=== PATIENT | male | born 1970 | race Caucasian/White ===

== ENCOUNTER 2017-04-05 11:28 | Emergency (ER) | payer OTHER ==
[2017-04-05 11:38] VITALS: TEMP 98.1
[2017-04-05] MEDS ORDERED: SODIUM CHLORIDE 0.9% 500 ML IV STA (12:12)
[2017-04-05] MEDS ORDERED: RX INFO: IV CONTRAST WAS GIVEN 1 EACH MISC MISCELLANE PRN (12:13)
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
[2017-04-05 12:24] VITALS: RESP 16
[2017-04-05 13:07] LABS: Basophils # (A) 0.1 k/uL (0-0.2); Basophils % (A) 1 %; CH 28.7; CHCM 33.2; Eosinophils # (A) 0.5 k/uL (0-0.7); Eosinophils % (A) 6 %; HCT 42.3 % (39.0-53.0); HDW 2.76; HGB 13.7 gm/dL (13.0-17.5); Luc # (Auto) 0.12; Luc % (Auto) 1; Lymphocytes # (A) 1.6 k/uL (1.0-4.8); Lymphocytes % (A) 17 %; MCH 28.2 pg (25.0-35.0); MCHC 32.4 g/dL (31.0-37.0); MCV 87.1 fL (80.0-100.0); Mean Platelet Volume 8.9; Monocytes # (A) 0.5 k/uL (0-1.0); Monocytes % (A) 5 %; Neutrophils # (A) 6.4 k/uL (1.3-7.7); Neutrophils % (A) 70 %; RBC 4.86 m/uL (4.30-5.90); RDW 14.5 % (11.5-15.5); WBC 9.1 k/uL (3.8-10.6); WBC (Perox) 9.01
[2017-04-05 13:24] LABS: ALT 97 U/L (21-72); AST 65 U/L (17-59); Alcohol <10 mg/dL; Alkaline Phosphatase 111 U/L (38-126); Amylase 43 U/L (30-110); Blood Urea Nitrogen 11 mg/dL (9-20); Calcium 9.1 mg/dL (8.4-10.2); Chloride 103 mmol/L (98-107); Glucose 96 mg/dL (74-99); Non-African American GFR(MDRD) >60 (>60 ml/min/1.73 sqM); Potassium 4.5 mmol/L (3.5-5.1); Sodium 138 mmol/L (137-145); Total Bilirubin 0.5 mg/dL (0.2-1.3); Total Protein 6.9 g/dL (6.3-8.2)
[2017-04-05 13:25] LABS: Anion Gap 9 mmol/L; Carbon Dioxide 26 mmol/L (22-30)
[2017-04-05 14:28] LABS: Appearance,Urine Clear (Clear); Bilirubin,Urine Negative (Negative); Glucose,Urine (UA) Negative (Negative); Ketones,Urine Negative (Negative); Leukocyte Esterase,Urine Negative (Negative); Nitrite,Urine Negative (Negative); PH, Urine 6.5 (5.0-8.0); Protein,Urine Negative (Negative); Specific Gravity,Urine 1.023 (1.001-1.035); UA Billing (MACRO vs. MICRO) CHEM; Urobilinogen,Urine <2.0 mg/dL (<2.0)
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
[2017-04-05 14:41] VITALS: BP 121/75; PULSE 74
== END 2017-04-05 14:52 | disposition home or self-care (01) ==
LOC: EC 11:28
DX: S39.012A Strain of muscle, fascia and tendon of lower back, initial encounter (principal); F32.9 Major depressive disorder, single episode, unspecified; I10 Essential (primary) hypertension; G25.81 Restless legs syndrome; E78.5 Hyperlipidemia, unspecified; F17.200 Nicotine dependence, unspecified, uncomplicated; Z95.5 Presence of coronary angioplasty implant and graft; Z79.891 Long term (current) use of opiate analgesic; Z79.899 Other long term (current) drug therapy; V48.5XXA Car driver injured in noncollision transport accident in traffic accident, initial encounter
CPT/HCPCS: 99284; 36415; 80053; 82150; 83690; 85025; 81003; 80306; 80320; 71260; 74177; Q9967

== ENCOUNTER 2017-04-27 10:51 | Observation (INO) | payer OTHER ==
[~2017-04-27 10:51] MED LIST: ALPRAZolam 0.25 MG TAB PO PRN; ALPRAZolam 0.5 MG TAB PO PRN; ASPIRIN 325 MG TAB PO STA; ATORVASTATIN 80 MG TAB PO STA; NITROGLYCERIN SL TABS 0.4 MG TAB SUBLINGUAL PRN; SODIUM CHLORIDE 0.9% 1,000 ML in EMPTY BAG 1 BAG IV ONE
[2017-04-27] MEDS ORDERED: NICOTINE 21MG/24HR PATCH TRANSDERM STA (11:19)
[2017-04-27] MEDS ORDERED: LIDOCAINE 2% INJ 20 MG/ML (20 ML MDV) ONE (12:10)
[2017-04-27] MEDS ORDERED: VERAPAMIL 2.5 MG/ML 2 ML AMP ONE (12:10)
[2017-04-27] MEDS ORDERED: MIDAZOLAM 2 MG/2 ML VIAL ONE (12:10)
[2017-04-27] MEDS: MIDAZOLAM 2 MG/2 ML VIAL IV ONE ×2 (12:30→12:40)
[2017-04-27] MEDS ORDERED: LIDOCAINE 2% INJ 20 MG/ML SQ ONE (12:36)
[2017-04-27] MEDS ORDERED: BIVALIRUDIN BOLUS 250 MG/50 ML IV ONE (12:38)
[2017-04-27] MEDS ORDERED: SODIUM CHLORIDE 0.9% IV ONE (12:39)
[2017-04-27] MEDS ORDERED: BIVALIRUDIN IV ONE (12:39)
[2017-04-27] MEDS: NITROGLYCERIN 1000MCG/10ML SYRINGE INTRACORON ONE ×2 (12:43→12:52)
[2017-04-27] MEDS ORDERED: CLOPIDOGREL 75 MG TAB ONE (12:54)
[2017-04-27] MEDS ORDERED: CLOPIDOGREL 75 MG TAB PO ONE (12:55)
[2017-04-27] MEDS ORDERED: IOHEXOL 350 MG/ML 125ML BOTTLE INJ ONE (12:58)
[2017-04-27] MEDS ORDERED: MAG HYDROX/AL HYDROX/SIMETH 30 ML CUP PO PRN (13:13)
[2017-04-27] MEDS ORDERED: ATROPINE SULFATE 0.1 MG/ML 10ML SYRINGE IV PRN (13:13)
[2017-04-27] MEDS ORDERED: NITROGLYCERIN SL TABS 0.4 MG TAB SUBLINGUAL PRN ×2 (13:13)
[2017-04-27] MEDS ORDERED: RX INFO: IV CONTRAST WAS GIVEN 1 EACH MISC MISCELLANE PRN (13:13)
[2017-04-27] MEDS ORDERED: ZOLPIDEM 5 MG TAB PO PRN (13:13)
[2017-04-27] MEDS ORDERED: SODIUM CHLORIDE 0.9% 1,000 ML IV SCH (13:15)
[2017-04-27] MEDS ORDERED: HYDROmorphone 1 MG/ML 1 ML SYRINGE ONE (13:18)
[2017-04-27] MEDS ORDERED: HYDROmorphone 1 MG/ML 1 ML SYRINGE IVP PRN (13:29)
--- NOTE | 2017-04-27 15:16 | CC ---
CARDIAC CATHETERIZATION REPORT DATE OF SERVICE: 04/27/2017. PERFORMING PHYSICIAN: Johnathan Mccauley MD, Textbook Associate. PROCEDURE PERFORMED: 1. Selective right and left coronary angiogram. 2. Left heart catheterization. 3. Successful stenting of the first diagonal branch of the LAD using 2.5 x 18 mm Xience ELIZABETH with good angiographic results. INDICATION: This is a pleasant 46-year-old gentleman who is known to have coronary artery disease, who presented to the hospital a few weeks ago with unstable angina and underwent stress echocardiogram, came in to be abnormal. He underwent heart catheterization at that point and was found to have severe 2-vessel CAD involving the RCA and first diag. He underwent stenting of the RCA and was brought today to undergo stenting of the diag. APPROACH: Right common femoral artery. COMPLICATION: None. LEVEL OF SEDATION: Moderate with sedation length of 24 minutes. PROCEDURE DESCRIPTION: After obtaining an informed consent, the patient was brought to the [facility]. The right common femoral artery was cannulated using micropuncture technique and a micropuncture wire passed easily. Then I placed a 6-Luxembourger sheath in the right common femoral artery. After that, I did selective right and left coronary angiogram using JR4 and JL4 catheters. After that, I did left heart catheterization using 6-Luxembourger pigtail catheter. The procedure was completed without any complication. SELECTIVE CORONARY ANGIOGRAM: 1. The RCA is a large caliber vessel. It is a dominant vessel. The RCA in the midportion is stented and the stent is patent. 2. The left main is angiographically normal. It bifurcates into the left circumflex and left anterior descending artery. The left circumflex is a large caliber vessel. It is a nondominant vessel. The QUICK so he has 2 obtuse to the tumor his he is a griffin who is up. The left circumflex is a moderate caliber vessel. It is a nondominant vessel. It is angiographically normal. It gives rise into a large OM branch which seems to be angiographically normal. 3. The left anterior descending artery. the proximal LAD appeared to have a lesion in the proximal portion in the range of 40%. It gives rise into a large first diagonal branch which seems to have a lesion, appeared to be in the range of 80%. The mid LAD has mild disease only and the LAD distally appeared to be angiographically normal. 4. HEMODYNAMICS: The left ventricular end-diastolic pressure was 12 mmHg and no gradient was identified across the aortic valve. PCI of the diagonal: Anticoagulation was initiated using Angiomax. Subsequently I took JL4 guide and the left main was engaged. A Whisper wire was used to wire the first diagonal. I did balloon angioplasty using 2.5 x 12 mm balloon and then I deployed 2.5 x 18 mm Xience ELIZABETH where the stent was positioned under fluoroscopy guidance and deployed under 18 atmospheres for 20 seconds. The following angiogram showed good angiographic results. The procedure was completed without any complication. CONCLUSION: 1. Patent stent in the mid right coronary artery. 2. Critical disease involving the first diagonal branch of the left anterior descending artery. 3. Intermediate disease involving the proximal left anterior descending artery. 4. Normal left circumflex coronary artery. 5. Successful stenting of the first diagonal branch using 2.5 x 18 mm Xience ELIZABETH with good angiographic results. POSTPROCEDURE MANAGEMENT: 1. Dual anti-platelet therapy. 2. Risk factor modifications. 3. Follow up with the patient. MMJENNIFER / QUINTENN: [id number] /
[2017-04-27] MEDS: GABAPENTIN 400 MG CAP PO SCH ×2 (16:53→20:10)
[2017-04-27] MEDS: HYDROmorphone 1 MG/ML 1 ML SYRINGE IVP PRN ×2 (17:28→23:31)
[2017-04-27] MEDS: METOPROLOL TARTRATE 12.5 MG TAB PO SCH (20:10)
[2017-04-27] MEDS: cloNIDine HCL 0.1 MG TAB PO SCH (20:10)
[2017-04-27] MEDS: SUCRALFATE 1 GM TAB PO SCH (20:10)
[2017-04-27] MEDS ORDERED: ATORVASTATIN 20 MG TAB PO SCH (21:00)
[2017-04-28] MEDS: HYDROmorphone 1 MG/ML 1 ML SYRINGE IVP PRN (04:03)
[2017-04-28 04:29] VITALS: RESP 18
[2017-04-28 06:42] LABS: Basophils # (A) 0.1 k/uL (0-0.2); Basophils % (A) 1 %; CH 28.7; CHCM 32.5; Eosinophils # (A) 0.7 k/uL (0-0.7); Eosinophils % (A) 8 %; HCT 45.1 % (39.0-53.0); HDW 2.65; HGB 14.3 gm/dL (13.0-17.5); Luc % (Auto) 1; Lymphocytes # (A) 1.4 k/uL (1.0-4.8); Lymphocytes % (A) 17 %; MCH 28.2 pg (25.0-35.0); MCHC 31.8 g/dL (31.0-37.0); MCV 88.6 fL (80.0-100.0); Mean Platelet Volume 9.3; Monocytes # (A) 0.3 k/uL (0-1.0); Monocytes % (A) 4 %; Neutrophils # (A) 5.5 k/uL (1.3-7.7); Neutrophils % (A) 69 %; RBC 5.09 m/uL (4.30-5.90); WBC (Perox) 7.71
[2017-04-28 06:59] LABS: Anion Gap 6 mmol/L; Blood Urea Nitrogen 13 mg/dL (9-20); Calcium 9.1 mg/dL (8.4-10.2); Carbon Dioxide 28 mmol/L (22-30); Chloride 104 mmol/L (98-107); Glucose 95 mg/dL (74-99); Non-African American GFR(MDRD) >60 (>60 ml/min/1.73 sqM); Potassium 4.5 mmol/L (3.5-5.1); Sodium 138 mmol/L (137-145)
[2017-04-28] MEDS: cloNIDine HCL 0.1 MG TAB PO SCH (08:10)
[2017-04-28] MEDS: GABAPENTIN 400 MG CAP PO SCH (08:10)
[2017-04-28] MEDS: METOPROLOL TARTRATE 12.5 MG TAB PO SCH (08:10)
[2017-04-28] MEDS: SUCRALFATE 1 GM TAB PO SCH (08:10)
[2017-04-28 08:20] VITALS: BP 120/72; PULSE 70; TEMP 97.8
[2017-04-28] MEDS ORDERED: NICOTINE 21MG/24HR PATCH TRANSDERM SCH (09:00)
[2017-04-28] MEDS ORDERED: ASPIRIN 325 MG TAB PO SCH (09:00)
[2017-04-28] MEDS ORDERED: CLOPIDOGREL 75 MG TAB PO SCH (09:00)
[2017-04-28] MEDS ORDERED: METHADONE 10 MG TAB PO SCH (09:00)
[2017-04-28 10:04] VITALS: BMI 37.8
--- NOTE | 2017-04-28 14:26 | DS ---
DISCHARGE SUMMARY DATE OF ADMISSION: 04/27/2017. DATE OF DISCHARGE: 04/28/2017 BRIEF HISTORY: This is a pleasant 46-year-old gentleman who was admitted to the hospital yesterday and underwent successful stenting of the first diagonal branch of the LAD using 2.5 x 18 mm drug-eluting stent with good angiographic results and without any complication. The procedure was performed from the right groin which is soft, nontender and without any bruises. The patient is going to be discharged home on dual anti-platelet therapy and statin and I will follow up with the patient as an outpatient in the office. MMODL / IJN: [id number] /
[2017-05-03] MEDS ORDERED: ERGOCALCIFEROL 50,000 UNIT CAP PO SCH (09:00)
== END 2017-04-28 10:50 | disposition home or self-care (01) ==
LOC: CATHCVL 10:51 → 6SEL 12:59 → CATHCVL 23:57 → 6SEL 23:57
PROVIDERS: ADMIT Internal Medicine Interventional Cardiology; ATTEND Internal Medicine Interventional Cardiology
DX: I25.110 Atherosclerotic heart disease of native coronary artery with unstable angina pectoris (principal); I10 Essential (primary) hypertension; E78.5 Hyperlipidemia, unspecified; K21.9 Gastro-esophageal reflux disease without esophagitis; G25.81 Restless legs syndrome; F14.10 Cocaine abuse, uncomplicated; F11.10 Opioid abuse, uncomplicated; F17.200 Nicotine dependence, unspecified, uncomplicated; Z79.891 Long term (current) use of opiate analgesic; Z79.899 Other long term (current) drug therapy; Z79.82 Long term (current) use of aspirin; Z82.49 Family history of ischemic heart disease and other diseases of the circulatory system; Z95.5 Presence of coronary angioplasty implant and graft
CPT/HCPCS: 93458; 80048; 85025; G0378 ×2; C9600; C1760; C1769 ×3; C1887; C1894 ×2; C1874; S4990 ×2; J2001; J2250; S0109; J1170 ×2; J0583; Q9967; 93005

== ENCOUNTER 2017-04-29 19:26 | Observation (INO) | payer OTHER ==
[2017-04-29 20:45] LABS: Basophils # (A) 0.1 k/uL (0-0.2); Basophils % (A) 1 %; Eosinophils # (A) 0.7 k/uL (0-0.7); Eosinophils % (A) 10 %; HGB 13.6 gm/dL (13.0-17.5); Lymphocytes % (A) 26 %; MCH 28.6 pg (25.0-35.0); MCHC 33.3 g/dL (31.0-37.0); MCV 85.9 fL (80.0-100.0); Mean Platelet Volume 9.2; Monocytes # (A) 0.4 k/uL (0-1.0); Monocytes % (A) 6 %; Neutrophils # (A) 4.3 k/uL (1.3-7.7); Neutrophils % (A) 57 %; Platelet Count 203 k/uL (150-450); RBC 4.77 m/uL (4.30-5.90); RDW 14.4 % (11.5-15.5); WBC 7.6 k/uL (3.8-10.6)
--- NOTE | 2017-04-29 20:45 | XR ---
EXAMINATION: XR chest 2V DATE AND TIME: 04/29/2017 8:39 PM ORDERING PROVIDER: Noemy Davis CLINICAL INDICATION: Chest Pain stent placed yesterday. TECHNIQUE: PA and lateral COMPARISON: 03/31/2017 DESCRIPTION: EKG leads. The lungs are clear. The pleural spaces are negative. The cardiac silhouette is not enlarged. The mediastinal and pleural silhouettes are unremarkable. The skeletal structures are intact without focal findings. The soft tissues are unremarkable. IMPRESSION: NO ACUTE PROCESS.
[2017-04-29 20:54] LABS: ALT 50 U/L (21-72); AST 35 U/L (17-59); Albumin 3.9 g/dL (3.5-5.0); Alkaline Phosphatase 98 U/L (38-126); Anion Gap 8 mmol/L; Blood Urea Nitrogen 15 mg/dL (9-20); Calcium 9.7 mg/dL (8.4-10.2); Carbon Dioxide 27 mmol/L (22-30); Chloride 103 mmol/L (98-107); Glucose 96 mg/dL (74-99); Magnesium 2.1 mg/dL (1.6-2.3); Potassium 4.7 mmol/L (3.5-5.1); Sodium 138 mmol/L (137-145); Total Bilirubin 0.3 mg/dL (0.2-1.3); Total Protein 6.7 g/dL (6.3-8.2)
[2017-04-29 21:04] LABS: Creatine Kinase 139 U/L (55-170)
[2017-04-29 21:17] LABS: Creatine Kinase MB 1.2 ng/mL (0.0-2.4); Troponin I <0.012 ng/mL (0.000-0.034)
--- NOTE | 2017-04-29 22:28 | ED ---
Chest Pain HPI <ArpitasherriDoug B - Last Filed: 04/29/17 23:00> - General Source: patient, RN notes reviewed, old records reviewed Mode of arrival: ambulatory Limitations: no limitations <SusanNoemy - Last Filed: 04/29/17 23:05> - General Chief Complaint: Chest Pain Stated Complaint: Chest Pain (Hx Heart) Time Seen by Provider: 04/29/17 20:17 - History of Present Illness Initial Comments: Patient is a 46-year-old male presents emergency room this day with intermittent chest pain. Patient had a stent placed 2 days ago and was discharged yesterday from the hospital. Patient reports that the pain as being coming and going for the past day. He reports he has 0 pain when arriving to emergency department at this time. He reports that the pain radiated into his jaw and to his neck. He denies any difficulty breathing. Denies any cough. He reports the surgery went well. The platelets and his LAD. His medical technologist clinical is Dr. Oquendo. Denies any fever or chills. (Noemy Davis) - Related Data Home Medications Medication Instructions Recorded Confirmed Atorvastatin [Lipitor] 20 mg PO HS 03/31/17 04/29/17 Ergocalciferol [Vitamin D2 50,000 unit PO MO 03/31/17 04/29/17 (DRISDOL)] Gabapentin [Neurontin] 800 mg PO TID 03/31/17 04/29/17 Methadone [Dolophine] 80 mg PO QAM 03/31/17 04/29/17 cloNIDine HCL [Catapres] 0.1 mg PO BID 03/31/17 04/29/17 Clopidogrel [Plavix] 75 mg PO QAM 04/26/17 04/29/17 Sucralfate [Carafate] 1 gm PO BID 04/26/17 04/29/17 Metoprolol Tartrate [Lopressor] 12.5 mg PO BID 04/29/17 04/29/17 Previous Rx's Medication Instructions Recorded Aspirin 325 mg PO DAILY #30 tab 04/04/17 Nicotine 21Mg/24Hr Patch [Habitrol] 1 patch TRANSDERM DAILY #30 patch 04/04/17 Nitroglycerin Sl Tabs [Nitrostat] 0.4 mg SUBLINGUAL Q5M PRN #20 tab 04/04/17 Allergies Allergy/AdvReac Type Severity Reaction Status Date / Time No Known Allergies Allergy Verified 04/29/17 20:22 Review of Systems ROS Other: All systems not noted in ROS Statement are negative. <Doug Yip - Last Filed: 04/29/17 23:00> ROS Other: All systems not noted in ROS Statement are negative. <Noemy Davis - Last Filed: 04/29/17 23:05> ROS Statement: Those systems with pertinent positive or pertinent negative responses have been documented in the HPI. EKG Findings - EKG Comments: EKG Findings:: EKG shows a sinus rhythm with flex ex deviation. Posterior infarct agent determined. Abnormal EKG noted. Sugar at 69 bpm. DC interval is 1 a formal sinus. QRS duration 82 muscles. QTQTC 408/4 [address]706. No evidence of ST elevation or T-wave inversions. Notes of intraventricular. Patient's EKG shows no significant changes from April 28. <Noemy Davis - Last Filed: 04/29/17 23:05> Past Medical History Past Medical History: GERD/Reflux, Hyperlipidemia, Hypertension Additional Past Medical History / Comment(s): RLS History of Any Multi-Drug Resistant Organisms: None Reported Past Surgical History: Heart Catheterization With Stent, Orthopedic Surgery Additional Past Surgical History / Comment(s): R knee arthroscopy, pilonidal cystectomy, circumcism Past Anesthesia/Blood Transfusion Reactions: No Reported Reaction Date of Last Stent Placement:: 04/03/17 Past Psychological History: Depression Smoking Status: Current every day smoker Past Alcohol Use History: None Reported Past Drug Use History: None Reported - Past Family History Father History Unknown: Yes Additional Family Medical History / Comment(s): Pt does not know his father much. Mother Family Medical History: No Reported History <Noemy Davis - Last Filed: 04/29/17 23:05> General Exam General appearance: alert, in no apparent distress Head exam: Present: atraumatic, normocephalic, normal inspection Eye exam: Present: normal appearance, PERRL, EOMI. Absent: scleral icterus, conjunctival injection, periorbital swelling ENT exam: Present: normal exam, mucous membranes moist Neck exam: Present: normal inspection. Absent: tenderness, meningismus, lymphadenopathy Respiratory exam: Present: normal lung sounds bilaterally. Absent: respiratory distress, wheezes, rales, rhonchi, stridor Cardiovascular Exam: Present: regular rate, normal rhythm, normal heart sounds. Absent: systolic murmur, diastolic murmur, rubs, gallop, clicks GI/Abdominal exam: Present: soft, normal bowel sounds. Absent: distended, tenderness, guarding, rebound, rigid Extremities exam: Present: normal inspection, full ROM, normal capillary refill. Absent: tenderness, pedal edema, joint swelling, calf tenderness Back exam: Present: normal inspection Neurological exam: Present: alert, oriented X3, CN II-XII intact Psychiatric exam: Present: normal affect, normal mood Skin exam: Present: warm, dry, intact, normal color. Absent: rash <Doug Yip - Last Filed: 04/29/17 23:00> Limitations: no limitations General appearance: alert, in no apparent distress Head exam: Present: atraumatic, normocephalic, normal inspection Eye exam: Present: normal appearance, PERRL, EOMI. Absent: scleral icterus, conjunctival injection, periorbital swelling ENT exam: Present: normal exam, mucous membranes moist Neck exam: Present: normal inspection. Absent: tenderness, meningismus, lymphadenopathy Respiratory exam: Present: normal lung sounds bilaterally. Absent: respiratory distress, wheezes, rales, rhonchi, stridor Cardiovascular Exam: Present: regular rate, normal rhythm, normal heart sounds. Absent: systolic murmur, diastolic murmur, rubs, gallop, clicks GI/Abdominal exam: Present: soft, normal bowel sounds. Absent: distended, tenderness, guarding, rebound, rigid Extremities exam: Present: normal inspection, full ROM, normal capillary refill. Absent: tenderness, pedal edema, joint swelling, calf tenderness Back exam: Present: normal inspection Neurological exam: Present: alert, oriented X3, CN II-XII intact Psychiatric exam: Present: normal affect, normal mood Skin exam: Present: warm, dry, intact, normal color. Absent: rash <Noemy Davis - Last Filed: 04/29/17 23:05> - General Exam Comments Initial Comments: 46-year-old male. No distress. (Noemy Davis) Course <Doug Yip - Last Filed: 04/29/17 23:00> <Noemy Davis - Last Filed: 04/29/17 23:05> Vital Signs 04/29/17 04/29/17 19:43 20:40 Temperature 98.3 F Pulse Rate 75 83 Respiratory 18 18 Rate Blood Pressure 109/57 111/62 O2 Sat by Pulse 96 96 Oximetry - Reevaluation(s) Reevaluation #1: 04/29/17 22:28 Patient is sleeping at this time. No distress. (Noemy Davis) Reevaluation #2: 04/29/17 23:00 Records from previous hospitalization are reviewed (Doug Yip) Chest Pain MDM <Doug Yip - Last Filed: 04/29/17 23:00> <Noemy Davis - Last Filed: 04/29/17 23:05> - MDM 46 male ER for evaluation of chest pain history of recent stent placement, patient will be admitted for cardiac observation, telemetry, monitor cardiopulmonary status (Doug Yip) Extremities sensory his primary today 2 days after having a stent placed in his LAD. Patient complains of having chest pain intermittently, reading up to his jaw. No shortness of breath. At this time cardiac enzymes are negative. Chest x-ray was normal. He rides any states that his pain is diminished at this time. Given his recent stent placement and risk factors Talisha the patient for further observation. He'll be admitted to the observation unit. ( Noemy Davis) Critical Care Time Critical Care Time: Yes Total Critical Care Time: 31 <Doug Yip - Last Filed: 04/29/17 23:00> Disposition <Doug Yip - Last Filed: 04/29/17 23:00> Time of Disposition: 22:50 <Noemy Davis - Last Filed: 04/29/17 23:05> Clinical Impression: Chest pain Disposition: ADMITTED IP TO THIS HOSP Condition: Stable
[2017-04-29] MEDS ORDERED: NITROGLYCERIN SL TABS 0.4 MG TAB SUBLINGUAL PRN ×2 (22:53→23:02)
[2017-04-30 00:05] VITALS: BMI 34.8
[2017-04-30] MEDS ORDERED: ATORVASTATIN 20 MG TAB PO STA (00:20)
[2017-04-30] MEDS ORDERED: cloNIDine HCL 0.1 MG TAB PO STA (00:20)
[2017-04-30] MEDS ORDERED: GABAPENTIN 400 MG CAP PO STA (00:21)
[2017-04-30] MEDS ORDERED: SUCRALFATE 1 GM TAB PO STA (00:21)
[2017-04-30] MEDS ORDERED: NICOTINE 21MG/24HR PATCH TRANSDERM STA (00:22)
[2017-04-30] MEDS ORDERED: METOPROLOL TARTRATE 12.5 MG TAB PO STA (00:22)
[2017-04-30 05:19] LABS: Cholesterol 142 mg/dL (<200); HDL Cholesterol 31 mg/dL (40-60); Triglycerides 464 mg/dL (<150)
[2017-04-30 08:34] VITALS: BP 118/74; PULSE 65; TEMP 97.8
[2017-04-30] MEDS ORDERED: NICOTINE 21MG/24HR PATCH TRANSDERM SCH (09:00)
[2017-04-30] MEDS ORDERED: GABAPENTIN 400 MG CAP ONE (09:00)
[2017-04-30] MEDS ORDERED: cloNIDine HCL 0.1 MG TAB PO SCH (09:00)
[2017-04-30] MEDS ORDERED: CLOPIDOGREL 75 MG TAB PO SCH (09:00)
[2017-04-30] MEDS ORDERED: ASPIRIN 325 MG TAB PO SCH ×2 (09:00)
[2017-04-30] MEDS ORDERED: METHADONE 10 MG TAB PO SCH (09:00)
[2017-04-30] MEDS ORDERED: METOPROLOL TARTRATE 12.5 MG TAB PO SCH (09:00)
[2017-04-30] MEDS ORDERED: ASPIRIN 325 MG TAB ONE (09:00)
[2017-04-30] MEDS ORDERED: SUCRALFATE 1 GM TAB PO SCH (09:00)
[2017-04-30] MEDS ORDERED: GABAPENTIN 400 MG CAP PO SCH (09:00)
[2017-04-30] MEDS ORDERED: ASPIRIN 81 MG ONE (09:21)
[2017-04-30] MEDS ORDERED: IV FLUID CONTINUATION 950 ML IV ONE (09:33)
[2017-04-30] MEDS ORDERED: ASPIRIN 81 MG PO ONE (09:33)
[2017-04-30] MEDS ORDERED: HEPARIN SODIUM 1,000 UN/ML (10ML VL) ONE ×2 (09:40→10:27)
[2017-04-30] MEDS ORDERED: MIDAZOLAM 2 MG/2 ML VIAL ONE ×2 (09:40→10:03)
[2017-04-30] MEDS ORDERED: VERAPAMIL 2.5 MG/ML 2 ML AMP ONE (09:40)
[2017-04-30] MEDS ORDERED: LIDOCAINE 2% INJ 20 MG/ML (20 ML MDV) ONE (09:43)
[2017-04-30] MEDS ORDERED: MIDAZOLAM 2 MG/2 ML VIAL IVP ONE ×3 (09:48→10:05)
[2017-04-30] MEDS ORDERED: LIDOCAINE 2% INJ 20 MG/ML SQ ONE (09:56)
[2017-04-30] MEDS ORDERED: fentaNYL (PF) 50 MCG/ML 2 ML AMP ONE (09:57)
[2017-04-30] MEDS ORDERED: fentaNYL (PF) 50 MCG/ML 2 ML AMP IVP ONE (09:59)
[2017-04-30] MEDS ORDERED: VERAPAMIL SYRINGE (5 MG/10 ML) INTRAARTER ONE (10:01)
[2017-04-30] MEDS ORDERED: NITROGLYCERIN 1000MCG/10ML SYRINGE INTRACORON ONE (10:05)
[2017-04-30] MEDS ORDERED: HEPARIN SODIUM 1,000 UN/ML (10ML VL) IV ONE (10:28)
[2017-04-30] MEDS ORDERED: niCARdipine Syringe (1,000 mcg/10 mL) INTRACORON ONE (10:47)
[2017-04-30 10:49] VITALS: RESP 16
[2017-04-30] MEDS ORDERED: SODIUM CHLORIDE 0.9% 1,000 ML IV SCH (12:15)
[2017-04-30] MEDS ORDERED: ACETAMINOPHEN TAB 325 MG TAB ONE (14:07)
[2017-04-30] MEDS ORDERED: ATORVASTATIN 20 MG TAB PO SCH (21:00)
--- NOTE | 2017-04-30 22:53 | LTR ---
DATE OF SERVICE: 04/30/[address] Turcios: Mr. Olegario Munoz underwent a heart catheterization and that revealed patent stents in the RCA and the diagonal. The procedure was completed without any complication. I want to thank you for allowing us to participate in his care and please do not hesitate to call if you have any question or concerns. Sincerely, MICAH / IJN: [id number] /
--- NOTE | 2017-04-30 22:53 | CC ---
CARDIAC CATHETERIZATION REPORT DATE OF SERVICE: 04/30/2017 PERFORMING PHYSICIAN: Johnathan Mccauley MD, dispatcher tow truck. PROCEDURE PERFORMED: 1. Selective right and left coronary angiogram. 2. Left heart catheterization. 3. Left ventriculography. 4. Intravascular ultrasound IVUS of the RCA. INDICATION: This is a pleasant 46-year-old gentleman who is known to have CAD and he underwent stenting of the RCA and the diagonal a few weeks ago. He presented to the hospital yesterday complaining of chest discomfort. His symptoms were quite concerning for angina and reminded him with what he had before he had the stent. APPROACH: Right radial artery. COMPLICATION: None. LEVEL OF SEDATION: Moderate with sedation length of 57 minutes. PROCEDURE DESCRIPTION: After obtaining an informed consent, the patient was brought to the cardiac orthodontic lab technician. The right radial artery was cannulated using micropuncture technique, the micropuncture wire passed easily then I placed a 6-Macanese sheath in the right radial artery. After that, I did give the patient anticoagulation with heparin and the patient received a total of 13,000 units of heparin with continuous monitoring the ACT throughout the procedure. Subsequently I did selective right and left coronary angiogram using JR4 and JL3.5 catheters. After that, I did left heart catheterization using 6-Macanese pigtail catheter. Then I did left ventriculography using the 6-Macanese pigtail catheter. After that, I did an intravascular ultrasound, IVUS, of the RCA. Please see a separate paragraph for that. SELECTIVE CORONARY ANGIOGRAM: 1. The RCA is a large caliber vessel and it is a dominant vessel. The proximal RCA appeared to have mild disease only with some contrast staining there. There is no severe or significant coronary artery disease seen. The mid RCA is stented and the stent is patent. The RCA distally had some spasm, which was results by nitroglycerin. 2. The left main is angiographically normal. It bifurcates into the left circumflex, and left anterior descending artery. 3. The left circumflex is a large caliber vessel and it is a nondominant vessel. The proximal left circumflex appears to have mild disease only and gives rise into a first OM branch which has disease appeared to be mild only. The mild disease only in the proximal portion. The mid and distal portion are angiographically normal of the first OM branch. The mid left circumflex is normal and the left circumflex distally is normal as well. 4. The left anterior descending artery; the proximal LAD is angiographically normal. It gives rise into a large first diagonal branch which is stented and the stent is patent. The LAD after the diagonal has mild disease only. The mid LAD appeared to be angiographically normal and the LAD distally is angiographically normal. HEMODYNAMICS: The left ventricular end-diastolic pressure was 20 mmHg and no gradient was identified across the aortic valve. LEFT VENTRICULOGRAPHY: Left ventriculography was performed in the KOEHLER projection and using a power injection. The left ventricular systolic function is mildly impaired with EF between 40% to 45%. IVUS OF THE RCA: Anticoagulation was initiated using heparin and heparin was given by the beginning of the procedure with continuous monitoring ACT throughout the procedure. After that, I did wire the RCA using a whisper wire. I did advanced intravascular ultrasound to the RCA and we did manual pullback. The manual pullback showed patent stent in the mid RCA and the stent is well apposed to the wall. The area proximal to the stent there was an area proximal to the stent I did not see any evidence of significant or severe dissection. I did not see any area of any severe coronary artery disease or concerning. At that point, the procedure was completed without any complication. CONCLUSION: 1. Patent stent in the mid right coronary artery. 2. Patent stent in the first diagonal branch of the left anterior descending artery. 3. No evidence of any residual coronary artery disease seen. 4. Elevated left ventricular end-diastolic pressure. 5. Mildly impaired left ventricular function. 6. A component of coronary vasospasm was seen in the distal right coronary artery. POSTPROCEDURE MANAGEMENT: 1. Maximize medical treatment and continue dual anti-platelet and statin. 2. I will add oral nitrate to the current medical treatment. 3. Follow up with the patient. MMODL / IJN: [id number] /
[2017-05-01] MEDS ORDERED: ISOSORBIDE MONONITRATE ER 30 MG TAB.ER.24H PO SCH (09:00)
--- NOTE | 2017-05-01 11:55 | P.HPIM ---
History of Present Illness H&P Date: 04/30/17 Patient is a 46-year-old male presents emergency room this day with intermittent chest pain. Patient had a stent placed 2 days ago and was discharged yesterday from the hospital. Patient reports that the pain as being coming and going for the past day. He reports he has 0 pain when arriving to emergency department at this time. He reports that the pain radiated into his jaw and to his neck. He denies any difficulty breathing. Denies any cough. He reports the surgery went well. The platelets and his LAD. 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 Denies any fever or chills. Patient underwent a catheterization which showed patent coronary stents and no other coronary occlusion was appreciated. Patient's chest pain is nonpruritic in nature may have acid reflux competent because of which patient will be discharged on Percocet for 14 days Review of Systems REVIEW OF SYSTEMS: CONSTITUTIONAL: No fever, no malaise, no fatigue. HEENT: No recent visual problems or hearing problems. Denied any sore throat. CARDIOVASCULAR: No orthopnea, PND, no palpitations, no syncope. PULMONARY: No shortness of breath, no cough, no hemoptysis. GASTROINTESTINAL: No diarrhea, no nausea, no vomiting, no abdominal pain. Normoactive bowel sounds. NEUROLOGICAL: No headaches, no weakness, no numbness. HEMATOLOGICAL: Denies any bleeding or petechiae. GENITOURINARY: Denies any burning micturition, frequency, or urgency. MUSCULOSKELETAL/RHEUMATOLOGICAL: Denies any joint pain, swelling, or any muscle pain. ENDOCRINE: Denies any polyuria or polydipsia. The rest of the 14-point review of systems is negative. Past Medical History Past Medical History: GERD/Reflux, Hyperlipidemia, Hypertension Additional Past Medical History / Comment(s): RLS History of Any Multi-Drug Resistant Organisms: None Reported Past Surgical History: Heart Catheterization With Stent, Orthopedic Surgery Additional Past Surgical History / Comment(s): R knee arthroscopy, pilonidal cystectomy, circumcism Past Anesthesia/Blood Transfusion Reactions: No Reported Reaction Date of Last Stent Placement:: 04/03/17 Smoking Status: Current some day smoker - Past Family History Father History Unknown: Yes Additional Family Medical History / Comment(s): Pt does not know his father much. Mother Family Medical History: No Reported History Medications and Allergies Home Medications Medication Instructions Recorded Confirmed Type Atorvastatin [Lipitor] 20 mg PO HS 03/31/17 04/30/17 History Ergocalciferol [Vitamin D2 50,000 unit PO MO 03/31/17 04/30/17 History (DRISDOL)] Gabapentin [Neurontin] 800 mg PO QID 03/31/17 04/30/17 History Methadone [Dolophine] 80 mg PO QAM 03/31/17 04/30/17 History cloNIDine HCL [Catapres] 0.1 mg PO BID 03/31/17 04/30/17 History Aspirin 325 mg PO DAILY #30 tab 04/04/17 04/30/17 Rx Nicotine 21Mg/24Hr Patch [Habitrol] 1 patch TRANSDERM DAILY #30 patch 04/04/17 04/30/17 Rx Nitroglycerin Sl Tabs [Nitrostat] 0.4 mg SUBLINGUAL Q5M PRN #20 tab 04/04/17 Rx Clopidogrel [Plavix] 75 mg PO QAM 04/26/17 04/30/17 History Sucralfate [Carafate] 1 gm PO BID 04/26/17 04/30/17 History Metoprolol Tartrate [Lopressor] 12.5 mg PO BID 04/29/17 04/30/17 History Allergies Allergy/AdvReac Type Severity Reaction Status Date / Time No Known Allergies Allergy Verified 04/30/17 00:05 Physical Exam PHYSICAL EXAMINATION: GENERAL: The patient is alert and oriented x3, not in any acute distress. Well developed, well nourished. HEENT: Pupils are round and equally reacting to light. EOMI. No scleral icterus. No conjunctival pallor. Normocephalic, atraumatic. No pharyngeal erythema. No thyromegaly. CARDIOVASCULAR: S1 and S2 present. No murmurs, rubs, or gallops. PULMONARY: Chest is clear to auscultation, no wheezing or crackles. ABDOMEN: Soft, nontender, nondistended, normoactive bowel sounds. No palpable organomegaly. MUSCULOSKELETAL: No joint swelling or deformity. EXTREMITIES: No cyanosis, clubbing, or pedal edema. NEUROLOGICAL: Gross neurological examination did not reveal any focal deficits. SKIN: No rashes. Results CBC & Chem 7: 04/29/17 20:22 04/29/17 20:22 Thrombosis Risk Factor Assmnt - Choose All That Apply Each Factor Represents 1 point: Age 41-60 years Thrombosis Risk Factor Assessment Total Risk Factor Score: 1 Thrombosis Risk Factor Assessment Level: Low Risk Assessment and Plan Plan: #1 chest pain: Rule out acute coronary syndromes and unstable angina patient underwent cardiac catheterization which showed patent coronaries. Patient is being discharged today. 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
--- NOTE | 2017-05-01 11:55 | P.DS ---
Providers Date of admission: 04/29/17 22:59 Attending physician: Krystle Marshall Consults: 04/29/17 22:53 Consult Physician Urgent Consulting Provider: Johnathan Mccauley Consult Reason/Comments: Recent Stent, Unstable Angina Do you want consulting provider notified?: Yes, Notify in am Primary care physician: [facility] Course: Please refer to my HPI Patient Condition at Discharge: Stable Plan - Discharge Summary New Discharge Prescriptions: No Action cloNIDine HCL [Catapres] 0.1 mg PO BID Methadone [Dolophine] 80 mg PO QAM Gabapentin [Neurontin] 800 mg PO QID Ergocalciferol [Vitamin D2 (DRISDOL)] 50,000 unit PO MO Atorvastatin [Lipitor] 20 mg PO HS Aspirin 325 mg PO DAILY #30 tab Nicotine 21Mg/24Hr Patch [Habitrol] 1 patch TRANSDERM DAILY #30 patch Nitroglycerin Sl Tabs [Nitrostat] 0.4 mg SUBLINGUAL Q5M PRN #20 tab PRN Reason: Chest Pain Clopidogrel [Plavix] 75 mg PO QAM Sucralfate [Carafate] 1 gm PO BID Metoprolol Tartrate [Lopressor] 12.5 mg PO BID Discharge Medication List Atorvastatin [Lipitor] 20 mg PO HS 03/31/17 [History] Ergocalciferol [Vitamin D2 (DRISDOL)] 50,000 unit PO MO 03/31/17 [History] Gabapentin [Neurontin] 800 mg PO QID 03/31/17 [History] Methadone [Dolophine] 80 mg PO QAM 03/31/17 [History] cloNIDine HCL [Catapres] 0.1 mg PO BID 03/31/17 [History] Aspirin 325 mg PO DAILY #30 tab 04/04/17 [Rx] Nicotine 21Mg/24Hr Patch [Habitrol] 1 patch TRANSDERM DAILY #30 patch 04/04/17 [ Rx] Nitroglycerin Sl Tabs [Nitrostat] 0.4 mg SUBLINGUAL Q5M PRN #20 tab 04/04/17 [Rx ] Clopidogrel [Plavix] 75 mg PO QAM 04/26/17 [History] Sucralfate [Carafate] 1 gm PO BID 04/26/17 [History] Metoprolol Tartrate [Lopressor] 12.5 mg PO BID 04/29/17 [History] Follow up Appointment(s)/Referral(s): Mary Camarena MD [Primary Care Provider] - 1-2 days
[2017-05-01 18:03] LABS: Creatine Kinase 94 U/L (55-170); Troponin I <0.012 ng/mL (0.000-0.034)
[2017-05-03] MEDS ORDERED: ERGOCALCIFEROL 50,000 UNIT CAP PO SCH (09:00)
== END 2017-04-30 18:15 ==
LOC: EC 19:26 → 3OBS 22:59
PROVIDERS: ADMIT Hospitalist; ATTEND Hospitalist
DX: I25.111 Atherosclerotic heart disease of native coronary artery with angina pectoris with documented spasm (principal); E78.5 Hyperlipidemia, unspecified; K21.9 Gastro-esophageal reflux disease without esophagitis; I10 Essential (primary) hypertension; G25.81 Restless legs syndrome; F32.9 Major depressive disorder, single episode, unspecified; F17.200 Nicotine dependence, unspecified, uncomplicated; E87.1 Hypo-osmolality and hyponatremia; Z95.5 Presence of coronary angioplasty implant and graft; Z79.899 Other long term (current) drug therapy; Z79.02 Long term (current) use of antithrombotics/antiplatelets; Z79.82 Long term (current) use of aspirin; Z79.891 Long term (current) use of opiate analgesic
CPT/HCPCS: 99291; 36415; 93005; 92978; 93458; 85347; 85379; 80061; 80053; 82550 ×2; 82553 ×2; 83735; 84484 ×2; 85025; 85610; 85730; 71020; G0378 ×2; C1769; C1887; C1753; C1894; S4990; J2001; J2250; J3010; J1644 ×2; S0109

== ENCOUNTER 2017-05-29 19:53 | Emergency (ER) | payer OTHER ==
[2017-05-29 20:03] VITALS: RESP 16; TEMP 97.3
[2017-05-29] MEDS ORDERED: SODIUM CHLORIDE 0.9% 1,000 ML IV ONE (20:20)
--- NOTE | 2017-05-29 20:31 | ED ---
Chest Pain HPI - General Source: patient Mode of arrival: wheelchair Limitations: no limitations <Dane Saenz - Last Filed: 05/29/17 21:43> <Doug Lockhart - Last Filed: 05/29/17 22:08> - General Chief Complaint: Chest Pain Stated Complaint: Chest pain Time Seen by Provider: 05/29/17 19:54 - History of Present Illness Initial Comments: This is a 46-year-old male with a history of CAD with a recent stent placement who presents emergency department for an episode of chest pain. 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 He states that it was a pressure sensation in the middle of his chest and went up to his jaw. He states it lasted about 1 minute. He does state that he took one nitro which seemed to help the pain however. He states that the pain seems similar to when he had to have a stent placed before. The patient of note was admitted here recently and had a cath done after his stent placement which showed patent coronaries. He had a similar event at that time. The patient does have nitro at home. He denies any symptoms currently and feels that he feels completely normal. No other complaints. (Dane Saenz) - Related Data Home Medications Medication Instructions Recorded Confirmed Atorvastatin [Lipitor] 20 mg PO HS 03/31/17 04/30/17 Ergocalciferol [Vitamin D2 50,000 unit PO MO 03/31/17 04/30/17 (DRISDOL)] Gabapentin [Neurontin] 800 mg PO QID 03/31/17 04/30/17 Methadone [Dolophine] 80 mg PO QAM 03/31/17 04/30/17 cloNIDine HCL [Catapres] 0.1 mg PO BID 03/31/17 04/30/17 Clopidogrel [Plavix] 75 mg PO QAM 04/26/17 04/30/17 Sucralfate [Carafate] 1 gm PO BID 04/26/17 04/30/17 Metoprolol Tartrate [Lopressor] 12.5 mg PO BID 04/29/17 04/30/17 Previous Rx's Medication Instructions Recorded Aspirin 325 mg PO DAILY #30 tab 04/04/17 Nicotine 21Mg/24Hr Patch [Habitrol] 1 patch TRANSDERM DAILY #30 patch 04/04/17 Nitroglycerin Sl Tabs [Nitrostat] 0.4 mg SUBLINGUAL Q5M PRN #20 tab 04/04/17 Levofloxacin [Levaquin] 500 mg PO DAILY 3 Days #7 tab 05/29/17 Allergies Allergy/AdvReac Type Severity Reaction Status Date / Time No Known Allergies Allergy Verified 05/29/17 20:02 Review of Systems ROS Other: All systems not noted in ROS Statement are negative. <Dane Saenz - Last Filed: 05/29/17 21:43> ROS Other: All systems not noted in ROS Statement are negative. <Doug Lockhart - Last Filed: 05/29/17 22:08> ROS Statement: Those systems with pertinent positive or pertinent negative responses have been documented in the HPI. EKG Findings - EKG Comments: EKG Findings:: EKG showing normal sinus rhythm with a rate 64. There is no abnormal ST segment changes or T-wave inversions. QTC is 460. Other intervals normal. No ectopy. <Dane Saenz - Last Filed: 05/29/17 21:43> Past Medical History Past Medical History: GERD/Reflux, Hyperlipidemia, Hypertension Additional Past Medical History / Comment(s): RLS History of Any Multi-Drug Resistant Organisms: None Reported Past Surgical History: Heart Catheterization With Stent, Orthopedic Surgery Additional Past Surgical History / Comment(s): R knee arthroscopy, pilonidal cystectomy, circumcism Past Anesthesia/Blood Transfusion Reactions: No Reported Reaction Date of Last Stent Placement:: 04/03/17 Past Psychological History: Depression Smoking Status: Former smoker Past Alcohol Use History: None Reported Past Drug Use History: Marijuana - Past Family History Father History Unknown: Yes Additional Family Medical History / Comment(s): Pt does not know his father much. Mother Family Medical History: No Reported History <Dane Saenz - Last Filed: 05/29/17 21:43> General Exam Limitations: no limitations <Dane Saenz - Last Filed: 05/29/17 21:43> <Doug Lockhart - Last Filed: 05/29/17 22:08> - General Exam Comments Initial Comments: Constitutional: Awake alert Appears comfortable Head: Normocephalic atraumatic Eyes: no conjunctival injection No scleral icterus EOMI Neck: No JVD Supple Heart: Regular rate rhythm normal S1-S2 no murmurs Lungs: Clear to auscultation bilaterally No wheezing No rales Abdomen: Soft nondistended nontender Extremities: Non edematous DP pulses intact Radial pulses intact Neuro: A&Ox3 No focal neurologic deficits Psych: Appropriate mood and affect (DanyDane) Course <Dane Saenz - Last Filed: 05/29/17 21:43> <Doug Lockhart - Last Filed: 05/29/17 22:08> Vital Signs 05/29/17 19:54 Temperature 97.3 F L Pulse Rate 62 Respiratory 16 Rate Blood Pressure 121/77 O2 Sat by Pulse 96 Oximetry - Reevaluation(s) Reevaluation #1: 05/29/17 21:[address] Lynn who stated that his patient troponin is negative and still comfortable he can follow-up as an outpatient. (Dane Saenz) - MDM Is a 46-year-old male who presents emergency department for an episode of chest pain. The patient has had no chest pain since being in emergency department. I did speak with Dr. Pereira on the phone about the patient. He was recently cathed and showed completely normal coronaries. At this time he felt comfortable with the patient going home as long as the troponin was negative. Patient not complaining of any chest pain at this time. Of note the chest x- ray was read as possible infiltrate and thus the patient will be started on Levaquin. He has been complaining of having some chills and sweats at home ( Dane Saenz) Disposition <Dane Saenz - Last Filed: 05/29/17 21:43> <Doug Lockhart - Last Filed: 05/29/17 22:08> Clinical Impression: Chest pain, Pneumonia Disposition: HOME SELF-CARE Instructions: Chest Pain (ED), Pneumonia (ED) Prescriptions: Levofloxacin [Levaquin] 500 mg PO DAILY 3 Days #7 tab Referrals: Mary Camarena MD [Primary Care Provider] - 1-2 days Johnathan Mccauley MD [STAFF PHYSICIAN] - 1-2 days
--- NOTE | 2017-05-29 20:43 | XR ---
EXAMINATION TYPE: XR chest 2V DATE OF EXAM: 05/29/2017 COMPARISON: 04/29/2017 HISTORY: 46-year-old male with pain TECHNIQUE: PA and lateral views FINDINGS: Are or normal size. Aorta and pulmonary vasculature within normal limits. Diffuse interstitial promin ence with peribronchial cuffing similar to prior. There is some focal patchy left upper and midlung d ensity. No pleural effusion. IMPRESSION: 1. Interstitial changes, correlate for possible etiologies including bronchitis, chronic asthma, or a typical pneumonias. 2. More focal patchy left upper lobe density could represent atelectasis or early infiltrate.
[2017-05-29 21:09] LABS: Basophils # (A) 0.1 k/uL (0-0.2); Basophils % (A) 1 %; Eosinophils # (A) 0.6 k/uL (0-0.7); Eosinophils % (A) 7 %; HCT 41.4 % (39.0-53.0); HGB 13.4 gm/dL (13.0-17.5); Lymphocytes # (A) 2.1 k/uL (1.0-4.8); Lymphocytes % (A) 26 %; MCH 28.6 pg (25.0-35.0); MCHC 32.4 g/dL (31.0-37.0); MCV 88.2 fL (80.0-100.0); Mean Platelet Volume 9.2; Monocytes # (A) 0.4 k/uL (0-1.0); Monocytes % (A) 5 %; Neutrophils # (A) 4.8 k/uL (1.3-7.7); Neutrophils % (A) 59 %; Platelet Count 244 k/uL (150-450); RBC 4.69 m/uL (4.30-5.90); RDW 14.8 % (11.5-15.5); WBC 8.2 k/uL (3.8-10.6)
[2017-05-29 21:22] LABS: ALT 50 U/L (21-72); AST 38 U/L (17-59); Albumin 4.2 g/dL (3.5-5.0); Alkaline Phosphatase 118 U/L (38-126); Anion Gap 12 mmol/L; Blood Urea Nitrogen 25 mg/dL (9-20); Calcium 9.4 mg/dL (8.4-10.2); Carbon Dioxide 27 mmol/L (22-30); Chloride 104 mmol/L (98-107); Glucose 92 mg/dL (74-99); Magnesium 2.3 mg/dL (1.6-2.3); Potassium 4.7 mmol/L (3.5-5.1); Sodium 143 mmol/L (137-145); Total Bilirubin 0.4 mg/dL (0.2-1.3); Total Protein 6.9 g/dL (6.3-8.2)
[2017-05-29 21:32] LABS: INR 1.1 (<1.2); Partial Thromboplastin Time 24.1 sec (22.0-30.0); Prothrombin Time 10.3 sec (9.0-12.0)
[2017-05-29 21:46] LABS: Troponin I <0.012 ng/mL (0.000-0.034)
[2017-05-29 21:53] LABS: Creatine Kinase MB 3.8 ng/mL (0.0-2.4)
[2017-05-29 22:17] VITALS: BP 93/59; PULSE 63
== END 2017-05-29 22:16 | disposition home or self-care (01) ==
LOC: EC 19:53
DX: J18.9 Pneumonia, unspecified organism (principal); E78.5 Hyperlipidemia, unspecified; I10 Essential (primary) hypertension; K21.9 Gastro-esophageal reflux disease without esophagitis; Z95.5 Presence of coronary angioplasty implant and graft; Z87.891 Personal history of nicotine dependence; Z79.02 Long term (current) use of antithrombotics/antiplatelets; Z79.891 Long term (current) use of opiate analgesic; Z79.899 Other long term (current) drug therapy
CPT/HCPCS: 36415; 71046; 80053; 82553; 83735; 84484; 85025; 85610; 85730; 93005; 96360; 99285

== ENCOUNTER 2017-12-12 00:28 | Emergency (ER) | payer OTHER ==
--- NOTE | 2017-12-12 02:06 | XR ---
EXAMINATION TYPE: XR KUB DATE OF EXAM: 12/12/2017 COMPARISON: NONE HISTORY: Constipation TECHNIQUE: 2 upright views FINDINGS: Bowel gas pattern is normal. There is no sign of intestinal obstruction or pneumoperitoneum . Fecal pattern is normal. There is no evidence of a mass. Lung bases are clear. There are no pathologic calcifications over the kidneys. IMPRESSION: Nonacute abdomen.
[2017-12-12] MEDS ORDERED: KETOROLAC 30 MG/ML 1 ML VIAL IVP STA (02:15)
[2017-12-12] MEDS ORDERED: SODIUM CHLORIDE 0.9% 1,000 ML IV STA (02:15)
[2017-12-12 02:52] LABS: Basophils # (A) 0.1 k/uL (0-0.2); Basophils % (A) 1 %; Eosinophils # (A) 0.2 k/uL (0-0.7); Eosinophils % (A) 2 %; HCT 42.6 % (39.0-53.0); HGB 13.8 gm/dL (13.0-17.5); Lymphocytes # (A) 2.5 k/uL (1.0-4.8); Lymphocytes % (A) 28 %; MCH 27.2 pg (25.0-35.0); MCHC 32.3 g/dL (31.0-37.0); MCV 84.4 fL (80.0-100.0); Mean Platelet Volume 8.2; Monocytes # (A) 0.5 k/uL (0-1.0); Monocytes % (A) 5 %; Neutrophils # (A) 5.5 k/uL (1.3-7.7); Neutrophils % (A) 61 %; Platelet Count 304 k/uL (150-450); RBC 5.05 m/uL (4.30-5.90); RDW 13.9 % (11.5-15.5)
[2017-12-12 03:03] LABS: ALT 29 U/L (21-72); AST 24 U/L (17-59); Albumin 4.2 g/dL (3.5-5.0); Alkaline Phosphatase 84 U/L (38-126); Amylase 58 U/L (30-110); Anion Gap 8 mmol/L; Blood Urea Nitrogen 18 mg/dL (9-20); Calcium 9.7 mg/dL (8.4-10.2); Carbon Dioxide 23 mmol/L (22-30); Chloride 109 mmol/L (98-107); Glucose 130 mg/dL (74-99); Lipase 182 U/L (23-300); Potassium 4.3 mmol/L (3.5-5.1); Sodium 140 mmol/L (137-145); Total Bilirubin 0.4 mg/dL (0.2-1.3); Total Protein 6.6 g/dL (6.3-8.2)
[2017-12-12] MEDS ORDERED: MAGNESIUM CITRATE 296 ML BOTTLE PO ONE (03:17)
--- NOTE | 2017-12-12 03:17 | ED ---
Abdominal Pain HPI - General Chief Complaint: Abdominal Pain Stated Complaint: Abd pain Time Seen by Provider: 12/12/17 01:27 Source: patient, RN notes reviewed Mode of arrival: ambulatory Limitations: no limitations - History of Present Illness Initial Comments: 47-year-old male presents emergency Department chief complaint of abdominal pain constipation. Patient states he has left lower quadrant abdominal pain. Patient denies any nausea vomiting fever, chills. Patient had no prior abdominal surgeries. Patient states that he has not tried taking any for constipation. Patient does admit that he recently was discontinued off of methadone. - Related Data Home Medications Medication Instructions Recorded Confirmed Atorvastatin [Lipitor] 20 mg PO HS 03/31/17 04/30/17 Ergocalciferol [Vitamin D2 50,000 unit PO MO 03/31/17 04/30/17 (DRISDOL)] Gabapentin [Neurontin] 800 mg PO QID 03/31/17 04/30/17 Methadone [Dolophine] 80 mg PO QAM 03/31/17 04/30/17 cloNIDine HCL [Catapres] 0.1 mg PO BID 03/31/17 04/30/17 Clopidogrel [Plavix] 75 mg PO QAM 04/26/17 04/30/17 Sucralfate [Carafate] 1 gm PO BID 04/26/17 04/30/17 Metoprolol Tartrate [Lopressor] 12.5 mg PO BID 04/29/17 04/30/17 Previous Rx's Medication Instructions Recorded Aspirin 325 mg PO DAILY #30 tab 04/04/17 Nicotine 21Mg/24Hr Patch [Habitrol] 1 patch TRANSDERM DAILY #30 patch 04/04/17 Nitroglycerin Sl Tabs [Nitrostat] 0.4 mg SUBLINGUAL Q5M PRN #20 tab 04/04/17 Levofloxacin [Levaquin] 500 mg PO DAILY 3 Days #7 tab 05/29/17 Allergies Allergy/AdvReac Type Severity Reaction Status Date / Time No Known Allergies Allergy Verified 12/12/17 00:39 Review of Systems ROS Statement: Those systems with pertinent positive or pertinent negative responses have been documented in the HPI. ROS Other: All systems not noted in ROS Statement are negative. Past Medical History Past Medical History: GERD/Reflux, Hyperlipidemia, Hypertension Additional Past Medical History / Comment(s): RLS History of Any Multi-Drug Resistant Organisms: None Reported Past Surgical History: Heart Catheterization With Stent, Orthopedic Surgery Additional Past Surgical History / Comment(s): R knee arthroscopy, pilonidal cystectomy, circumcism Past Anesthesia/Blood Transfusion Reactions: No Reported Reaction Date of Last Stent Placement:: 04/03/17 Past Psychological History: Depression Smoking Status: Current every day smoker Past Alcohol Use History: None Reported Past Drug Use History: Heroin, IV Drug Use, Marijuana, Methamphetamine, Prescription Drug Abuse - Past Family History Father History Unknown: Yes Additional Family Medical History / Comment(s): Pt does not know his father much. Mother Family Medical History: No Reported History General Exam Limitations: no limitations General appearance: alert, in no apparent distress Head exam: Present: atraumatic, normocephalic, normal inspection Respiratory exam: Present: normal lung sounds bilaterally. Absent: respiratory distress, wheezes, rales, rhonchi, stridor Cardiovascular Exam: Present: regular rate, normal rhythm, normal heart sounds. Absent: systolic murmur, diastolic murmur, rubs, gallop, clicks GI/Abdominal exam: Present: soft, tenderness (Mild left lower quadrant tenderness), normal bowel sounds. Absent: distended, guarding, rebound, rigid Back exam: Absent: CVA tenderness (R), CVA tenderness (L) Course Vital Signs 12/12/17 00:36 Temperature 98.2 F Pulse Rate 95 Respiratory 20 Rate Blood Pressure 123/88 O2 Sat by Pulse 98 Oximetry Medical Decision Making - Medical Decision Making 47-year-old male presented for abdominal pain. Patient also complained constipation. He does have mild constipation x-ray patient is sleeping in the room at this time. Patient was updated on lab results which are unremarkable. Patient will be discharged with magnesium citrate return parameters were discussed. - Lab Data Result diagrams: 12/12/17 02:36 12/12/17 02:36 Lab Results 12/12/17 12/12/17 Range/Units 02:36 02:36 WBC 9.0 (3.8-10.6) k/uL RBC 5.05 (4.30-5.90) m/uL Hgb 13.8 (13.0-17.5) gm/dL Hct 42.6 (39.0-53.0) % MCV 84.4 (80.0-100.0) fL MCH 27.2 (25.0-35.0) pg MCHC 32.3 (31.0-37.0) g/dL RDW 13.9 (11.5-15.5) % Plt Count 304 (150-450) k/uL Neutrophils % 61 % Lymphocytes % 28 % Monocytes % 5 % Eosinophils % 2 % Basophils % 1 % Neutrophils # 5.5 (1.3-7.7) k/uL Lymphocytes # 2.5 (1.0-4.8) k/uL Monocytes # 0.5 (0-1.0) k/uL Eosinophils # 0.2 (0-0.7) k/uL Basophils # 0.1 (0-0.2) k/uL Sodium 140 (137-145) mmol/L Potassium 4.3 (3.5-5.1) mmol/L Chloride 109 H (98-107) mmol/L Carbon Dioxide 23 (22-30) mmol/L Anion Gap 8 mmol/L BUN 18 (9-20) mg/dL Creatinine 1.11 (0.66-1.25) mg/dL Est GFR (CKD-EPI)AfAm >90 (>60 ml/min/1.73 sqM) Est GFR (CKD-EPI)NonAf 79 (>60 ml/min/1.73 sqM) Glucose 130 H (74-99) mg/dL Calcium 9.7 (8.4-10.2) mg/dL Total Bilirubin 0.4 (0.2-1.3) mg/dL AST 24 (17-59) U/L ALT 29 (21-72) U/L Alkaline Phosphatase 84 (38-126) U/L Total Protein 6.6 (6.3-8.2) g/dL Albumin 4.2 (3.5-5.0) g/dL Amylase 58 (30-110) U/L Lipase 182 (23-300) U/L Disposition Clinical Impression: Constipation, Abdominal pain Disposition: HOME SELF-CARE Condition: Stable Instructions: Abdominal Pain (ED) Additional Instructions: Please return to the Emergency Department if symptoms worsen or any other concerns. Is patient prescribed a controlled substance at d/c from ED?: No Referrals: Mary Camarena MD [Primary Care Provider] - 1-2 days Time of Disposition: 03:17
[2017-12-12 03:37] VITALS: BP 144/89; PULSE 76; RESP 17; TEMP 98.3
== END 2017-12-12 03:37 | disposition home or self-care (01) ==
LOC: EC 00:28
DX: K59.00 Constipation, unspecified (principal); E78.5 Hyperlipidemia, unspecified; I10 Essential (primary) hypertension; G25.81 Restless legs syndrome; F17.200 Nicotine dependence, unspecified, uncomplicated; Z95.5 Presence of coronary angioplasty implant and graft; Z79.891 Long term (current) use of opiate analgesic; Z79.02 Long term (current) use of antithrombotics/antiplatelets; Z79.899 Other long term (current) drug therapy
CPT/HCPCS: 36415; 80053; 82150; 83690; 85025; 74018; 99284; 96374; 96361; J1885

== ENCOUNTER 2020-11-03 07:06 | Observation (INO) | payer OTHER ==
[2020-11-03] MEDS ORDERED: NITROGLYCERIN OINT 1 INCH/GM PACKET TOPICAL STA (07:24)
[2020-11-03] MEDS ORDERED: ASPIRIN 81 MG PO STA (07:24)
--- NOTE | 2020-11-03 07:27 | ED ---
General Adult HPI - General Chief complaint: Chest Pain Stated complaint: Syncope Time Seen by Provider: 11/03/20 07:16 Source: patient, police, EMS, RN notes reviewed Mode of arrival: EMS Limitations: no limitations - History of Present Illness Initial comments: Patient is a 50-year-old male presenting to the emergency Department with chest discomfort and syncopal episode. Episode occurred this morning. Patient woke up for breakfast. Patient has had some waxing and waning but overall mild chest pressure. Discomfort is minimal at this time. Patient did have an episode where he lost consciousness. Patient did feel lightheaded at the time. Patient states he bumped the right side of his face, in the cheek area. Patient otherwise did not hit his head. No headache. No weakness or confusion. No change in mental status. No history of similar symptoms previously. No associated dyspnea, nausea, or diaphoresis. - Related Data Home Medications Medication Instructions Recorded Confirmed Atorvastatin [Lipitor] 20 mg PO HS 03/31/17 04/30/17 Ergocalciferol [Vitamin D2 50,000 unit PO MO 03/31/17 04/30/17 (DRISDOL)] Gabapentin [Neurontin] 800 mg PO QID 03/31/17 04/30/17 Methadone [Dolophine] 80 mg PO QAM 03/31/17 04/30/17 cloNIDine HCL [Catapres] 0.1 mg PO BID 03/31/17 04/30/17 Clopidogrel [Plavix] 75 mg PO QAM 04/26/17 04/30/17 Sucralfate [Carafate] 1 gm PO BID 04/26/17 04/30/17 Metoprolol Tartrate [Lopressor] 12.5 mg PO BID 04/29/17 04/30/17 Previous Rx's Medication Instructions Recorded Aspirin 325 mg PO DAILY #30 tab 04/04/17 Nicotine 21Mg/24Hr Patch [Habitrol] 1 patch TRANSDERM DAILY #30 patch 04/04/17 Nitroglycerin Sl Tabs [Nitrostat] 0.4 mg SUBLINGUAL Q5M PRN #20 tab 04/04/17 Levofloxacin [Levaquin] 500 mg PO DAILY 3 Days #7 tab 05/29/17 Allergies Allergy/AdvReac Type Severity Reaction Status Date / Time No Known Allergies Allergy Verified 12/12/17 00:39 Review of Systems ROS Statement: Those systems with pertinent positive or pertinent negative responses have been documented in the HPI. ROS Other: All systems not noted in ROS Statement are negative. Constitutional: Denies: fever Eyes: Denies: eye pain ENT: Denies: ear pain Respiratory: Denies: cough Cardiovascular: Reports: as per HPI, chest pain Endocrine: Denies: fatigue Gastrointestinal: Denies: abdominal pain Genitourinary: Denies: dysuria Musculoskeletal: Denies: back pain Skin: Denies: rash Neurological: Denies: headache, weakness, numbness, paresthesias, confusion, abnormal gait Past Medical History Past Medical History: Coronary Artery Disease (CAD), GERD/Reflux, Hyperlipidemia, Hypertension Additional Past Medical History / Comment(s): RLS History of Any Multi-Drug Resistant Organisms: None Reported Past Surgical History: Heart Catheterization With Stent, Orthopedic Surgery Additional Past Surgical History / Comment(s): R knee arthroscopy, pilonidal cystectomy, circumcism Past Anesthesia/Blood Transfusion Reactions: No Reported Reaction Date of Last Stent Placement:: 04/03/17 Past Psychological History: Depression Past Alcohol Use History: None Reported Past Drug Use History: Heroin, IV Drug Use, Marijuana, Methamphetamine, Prescription Drug Abuse - Past Family History Father History Unknown: Yes Additional Family Medical History / Comment(s): Pt does not know his father much. Mother Family Medical History: No Reported History General Exam Limitations: no limitations General appearance: alert, in no apparent distress Head exam: Present: atraumatic, normocephalic, other (No tenderness to the right cheek region) Eye exam: Present: normal appearance, PERRL, EOMI ENT exam: Present: normal oropharynx Neck exam: Present: normal inspection. Absent: tenderness Respiratory exam: Present: normal lung sounds bilaterally. Absent: chest wall tenderness Cardiovascular Exam: Present: regular rate, normal rhythm Expanded Peripheral pulses: 2+: Radial (R), Radial (L), Posterior Tibialis (R), Posterior Tibialis (L) GI/Abdominal exam: Present: soft. Absent: tenderness, pulsatile mass Extremities exam: Present: normal inspection. Absent: pedal edema, calf tenderness Neurological exam: Present: alert, oriented X3, CN II-XII intact. Absent: motor sensory deficit Expanded Speech: Present: fluid speech Motor strength exam: RUE: 5, LUE: 5, RLE: 5, LLE: 5 Eye Response: (4) open spontaneously Motor Response: (6) obeys commands Verbal Response: (5) oriented Psychiatric exam: Present: normal affect, normal mood Skin exam: Present: normal color Course Vital Signs 11/03/20 07:13 Temperature 98.2 F Pulse Rate 59 L Respiratory 16 Rate Blood Pressure 97/60 O2 Sat by Pulse 99 Oximetry EKG Findings - EKG Comments: EKG Findings:: Since bradycardia with rate of 59. [place] 192. QRS 70. QT 396. QTc 392. Left axis. Inferior Q waves and T wave inversion. Medical Decision Making - Medical Decision Making Case was discussed with Dr. Mullen, who will admit covering for hospital call. Patient and officer updated. - Lab Data Result diagrams: 11/03/20 07:10 11/03/20 07:10 Lab Results 11/03/20 11/03/20 11/03/20 Range/Units 07:10 07:10 07:10 WBC 6.9 (3.8-10.6) k/uL RBC 5.08 (4.30-5.90) m/uL Hgb 15.1 (13.0-17.5) gm/dL Hct 44.3 (39.0-53.0) % MCV 87.2 (80.0-100.0) fL MCH 29.6 (25.0-35.0) pg MCHC 34.0 (31.0-37.0) g/dL RDW 13.4 (11.5-15.5) % Plt Count 223 (150-450) k/uL MPV 9.4 Neutrophils % 61 % Lymphocytes % 26 % Monocytes % 5 % Eosinophils % 6 % Basophils % 1 % Neutrophils # 4.2 (1.3-7.7) k/uL Lymphocytes # 1.8 (1.0-4.8) k/uL Monocytes # 0.4 (0-1.0) k/uL Eosinophils # 0.4 (0-0.7) k/uL Basophils # 0.1 (0-0.2) k/uL PT 10.9 (9.0-12.0) sec INR 1.0 (<1.2) APTT 22.4 (22.0-30.0) sec D-Dimer <0.17 (<0.60) mg/L FEU Sodium 138 (137-145) mmol/L Potassium 4.4 (3.5-5.1) mmol/L Chloride 105 (98-107) mmol/L Carbon Dioxide 28 (22-30) mmol/L Anion Gap 5 mmol/L BUN 11 (9-20) mg/dL Creatinine 1.16 (0.66-1.25) mg/dL Est GFR (CKD-EPI)AfAm 85 (>60 ml/min/1.73 sqM) Est GFR (CKD-EPI)NonAf 74 (>60 ml/min/1.73 sqM) Glucose 102 H (74-99) mg/dL Calcium 9.0 (8.4-10.2) mg/dL Magnesium 2.0 (1.6-2.3) mg/dL Total Bilirubin 0.5 (0.2-1.3) mg/dL AST 87 H (17-59) U/L ALT 86 H (4-49) U/L Alkaline Phosphatase 78 (38-126) U/L Troponin I (0.000-0.034) ng/mL Total Protein 6.5 (6.3-8.2) g/dL Albumin 3.9 (3.5-5.0) g/dL 11/03/20 Range/Units 07:10 WBC (3.8-10.6) k/uL RBC (4.30-5.90) m/uL Hgb (13.0-17.5) gm/dL Hct (39.0-53.0) % MCV (80.0-100.0) fL MCH (25.0-35.0) pg MCHC (31.0-37.0) g/dL RDW (11.5-15.5) % Plt Count (150-450) k/uL MPV Neutrophils % % Lymphocytes % % Monocytes % % Eosinophils % % Basophils % % Neutrophils # (1.3-7.7) k/uL Lymphocytes # (1.0-4.8) k/uL Monocytes # (0-1.0) k/uL Eosinophils # (0-0.7) k/uL Basophils # (0-0.2) k/uL PT (9.0-12.0) sec INR (<1.2) APTT (22.0-30.0) sec D-Dimer (<0.60) mg/L FEU Sodium (137-145) mmol/L Potassium (3.5-5.1) mmol/L Chloride (98-107) mmol/L Carbon Dioxide (22-30) mmol/L Anion Gap mmol/L BUN (9-20) mg/dL Creatinine (0.66-1.25) mg/dL Est GFR (CKD-EPI)AfAm (>60 ml/min/1.73 sqM) Est GFR (CKD-EPI)NonAf (>60 ml/min/1.73 sqM) Glucose (74-99) mg/dL Calcium (8.4-10.2) mg/dL Magnesium (1.6-2.3) mg/dL Total Bilirubin (0.2-1.3) mg/dL AST (17-59) U/L ALT (4-49) U/L Alkaline Phosphatase (38-126) U/L Troponin I <0.012 (0.000-0.034) ng/mL Total Protein (6.3-8.2) g/dL Albumin (3.5-5.0) g/dL - Radiology Data Radiology results: image reviewed (Chest x-ray reveals no acute process) Disposition Clinical Impression: Chest pain, Syncope Disposition: ADMITTED IP TO THIS HOSP Is patient prescribed a controlled substance at d/c from ED?: No Referrals: None,Stated [Primary Care Provider] - 1-2 days Decision Time: 08:27
[2020-11-03 07:44] LABS: Basophils # (A) 0.1 k/uL (0-0.2); Basophils % (A) 1 %; Eosinophils # (A) 0.4 k/uL (0-0.7); Eosinophils % (A) 6 %; HCT 44.3 % (39.0-53.0); HGB 15.1 gm/dL (13.0-17.5); Lymphocytes # (A) 1.8 k/uL (1.0-4.8); Lymphocytes % (A) 26 %; MCH 29.6 pg (25.0-35.0); MCV 87.2 fL (80.0-100.0); Mean Platelet Volume 9.4; Monocytes # (A) 0.4 k/uL (0-1.0); Monocytes % (A) 5 %; Neutrophils # (A) 4.2 k/uL (1.3-7.7); Neutrophils % (A) 61 %; Platelet Count 223 k/uL (150-450); RBC 5.08 m/uL (4.30-5.90); RDW 13.4 % (11.5-15.5); WBC 6.9 k/uL (3.8-10.6)
[2020-11-03 07:54] LABS: Albumin 3.9 g/dL (3.5-5.0); Potassium 4.4 mmol/L (3.5-5.1); Total Bilirubin 0.5 mg/dL (0.2-1.3); Total Protein 6.5 g/dL (6.3-8.2)
[2020-11-03 07:59] LABS: D-Dimer <0.17 mg/L FEU (<0.60); Partial Thromboplastin Time 22.4 sec (22.0-30.0); Prothrombin Time 10.9 sec (9.0-12.0)
--- NOTE | 2020-11-03 08:22 | XR ---
EXAMINATION TYPE: XR chest 1V portable DATE OF EXAM: 11/03/2020 HISTORY: Shortness of breath. COMPARISON: 05/29/2017 TECHNIQUE: Single view of the chest is submitted. FINDINGS: Demonstrated are scattered senescent parenchymal change. There is no evidence for focal infiltrate. The heart is stable. Hilar and mediastinal structures are within normal limits. Degenerative changes are seen of the dorsal spine. IMPRESSION: 1. Chronic changes without evidence for acute pulmonary disease.
[2020-11-03] MEDS ORDERED: NITROGLYCERIN SL TABS 0.4 MG TAB SUBLINGUAL PRN (08:27)
[2020-11-03] MEDS ORDERED: oxyCODONE-APAP 5-325MG 1 EACH TAB PO PRN (08:28)
[2020-11-03] MEDS ORDERED: NALOXONE 0.4 MG/ML 1 ML VIAL IV PRN (08:28)
[2020-11-03] MEDS ORDERED: MORPHINE SULFATE 4 MG/ML SYRINGE IV PRN (08:28)
[2020-11-03] MEDS ORDERED: ACETAMINOPHEN TAB 325 MG TAB PO PRN (08:28)
[2020-11-03] MEDS: ENOXAPARIN 40 MG/0.4 ML SYRINGE SQ SCH (08:44)
--- NOTE | 2020-11-03 11:26 | P.HPIM ---
History of Present Illness H&P Date: 11/03/20 Chief Complaint: chest pressure, syncope 50 year old man with history of CAD s/p PCI x 2, narcotic dependence, HLD, HTN presented for chest pressure and syncopal episode. He said that he has been experiencing palpitations intermittently throughout the week leading up to arr ival. This morning, he had an episode in which he lost consciousness briefly shortly after breakfast. He denied hitting his head, biting his tongue, losing bowel or bladder during the episode. He denies palpitations just prior to syncope. He denies confusion after coming to after the episode. He reports some feeling of chest pressure, but not pain. He denies fevers, chills, n/v/c/d, abd pain, cough, dyspnea, dysuria, dyschezia, numbness/weakness. In the ER, patient was afebrile, 105/58, HR 60, 100% on room air. CBC and chemistries unremarkable. LFTs show mild non-specific elevation of AST/ALT. Troponins were negative x 2. EKG shows sinus bradycardia without ischemic changes. CXR is clear with no vascular congestion or lung pathology. Review of Systems All Systems reviewed and pertinent positives and negatives noted in HPI, all other symptoms are negative Past Medical History Past Medical History: Coronary Artery Disease (CAD), GERD/Reflux, Hyperlipidemia, Hypertension Additional Past Medical History / Comment(s): RLS History of Any Multi-Drug Resistant Organisms: None Reported Past Surgical History: Heart Catheterization With Stent, Orthopedic Surgery Additional Past Surgical History / Comment(s): R knee arthroscopy, pilonidal cystectomy, circumcism Past Anesthesia/Blood Transfusion Reactions: No Reported Reaction Date of Last Stent Placement:: 04/03/17 Past Psychological History: Depression Past Alcohol Use History: None Reported Past Drug Use History: Heroin, IV Drug Use, Marijuana, Methamphetamine, Prescription Drug Abuse - Past Family History Father History Unknown: Yes Additional Family Medical History / Comment(s): Pt does not know his father much. Mother Family Medical History: No Reported History Medications and Allergies Home Medications Medication Instructions Recorded Confirmed Type cloNIDine HCL [Catapres] 0.1 mg PO BID 03/31/17 11/03/20 History Aspirin 325 mg PO DAILY #30 tab 04/04/17 11/03/20 Rx Clopidogrel [Plavix] 75 mg PO DAILY 04/26/17 11/03/20 History Metoprolol Tartrate [Lopressor] 12.5 mg PO BID 04/29/17 11/03/20 History Loratadine [Claritin] 10 mg PO DAILY 11/03/20 11/03/20 History Omeprazole 20 mg PO BID 11/03/20 11/03/20 History Pramipexole [Mirapex] 0.5 mg PO HS 11/03/20 11/03/20 History Rosuvastatin [Crestor] 20 mg PO HS 11/03/20 11/03/20 History Allergies Allergy/AdvReac Type Severity Reaction Status Date / Time No Known Allergies Allergy Verified 11/03/20 08:54 Physical Exam Osteopathic Statement: *. No significant issues noted on an osteopathic structural exam other than those noted in the History and Physical/Consult. Vitals: Vital Signs Temp Pulse Resp BP Pulse Ox 11/03/20 10:30 98 F 60 16 105/58 100 11/03/20 08:50 60 16 90/53 98 11/03/20 07:13 98.2 F 59 L 16 97/60 99 Intake and Output 11/02/20 11/03/20 11/03/20 22:59 06:59 14:59 Other: Weight 104.326 kg Gen: awake, alert HEENT: normocephalic, atraumatic, good hearing acuity, moist mucous membranes Resp: good air exchange, breathing comfortably with no accessory muscle use, clear to auscultation bilaterally without wheezes or crackles CVS: good distal perfusion x 4, regular rate and rhythm without murmurs GI: soft, NTTP, ND appropriate bowel sounds : no SPT, no CVAT, edwards catheter not present MSK: no pitting edema, no clubbing Neuro: non-focal, moving all extremities Psych: cooperative, euthymic mood Results CBC & Chem 7: 11/03/20 07:10 11/03/20 07:10 Labs: Abnormal Lab Results - Last 24 Hours (Table) 11/03/20 Range/Units 07:10 Glucose 102 H (74-99) mg/dL AST 87 H (17-59) U/L ALT 86 H (4-49) U/L Assessment and Plan Assessment: Syncope Chest pressure History of CAD -Admit to telemetry, observation -Cardiology consult -Trend troponins -EKG/nitro when necessary -Aspirin, Plavix -Statin -Continue home metoprolol -Echocardiogram, pending Hypertension Hyperlipidemia Narcotic dependence -Home medications reviewed and reconciled Patient is a full code
[2020-11-03] MEDS ORDERED: NITROGLYCERIN OINT 1 INCH/GM PACKET TOPICAL SCH (12:00)
--- NOTE | 2020-11-03 12:14 | P.CRDCN ---
History of Present Illness Consult date: 11/03/20 History of present illness: HISTORY OF PRESENT ILLNESS: This is a 50-year-old male with a past medical history significant for coronary artery disease with previous stenting, hypertension, and hyperlipidemia. Patient follows in the office with Dr. Badillo. We have been asked to see the patient in consultation for chest pain and syncope. Patient examined at the bedside in the emergency room. Patient is currently incarcerated and officer is at the bedside. Patient states this morning he was in his normal state of health when he was walking after breakfast and had an apparent syncopal episode. It is unclear if the patient lost consciousness. He reports feeling mildly dizzy before this happened. He denies chest pain or pressure. He denies shortness of breath. He denies losing control of bowel or bladder. Patient denies biting his tongue. At the time of examination, the patient denies any complaints. EKG reveals sinus mechanism with T-wave inversions in inferior leads Chest xray chronic changes without evidence for acute pulmonary disease Laboratory data: WBC 6.9. Hemoglobin 15.1. Platelet count 223. D-dimer 0.17. Sodium 138. Potassium 4.4. BUN 11. Creatinine 1.16. Magnesium 2.0. Troponin negative 2. Current home cardiac medications include Crestor 20 gm daily, Catapres 0.1 mg twice a day, metoprolol tartrate 12.5 mg twice a day, clopidogrel 75 mg daily, aspirin 325 mg daily Most recent echocardiogram obtained in 2017 revealed ejection fraction 55-60%, mild mitral regurgitation and trace tricuspid regurgitation Cardiac catheterization history: April [address] Badillo revealing patent stent in the mid right coronary artery, patent stent in the first diagonal branch of the left anterior descending artery, mildly impaired left ventricular function, and a component of coronary vasospasm was seen in the distal right coronary artery. REVIEW OF SYSTEMS: At the time of my exam: CONSTITUTIONAL: Denies fever or chills. HEENT: Denies blurred vision, vision changes, or eye pain. Denies hemoptysis CARDIOVASCULAR: Denies chest pain. Denies orthopnea. Denies PND. Denies palpitations RESPIRATORY: Denies shortness of breath. GASTROINTESTINAL: Denies abdominal pain. Denies nausea or vomiting. HEMATOLOGIC: Denies bleeding disorders. GENITOURINARY: Denies any blood in urine. SKIN: Denies pruitis. Denies rash. PHYSICAL EXAM: VITAL SIGNS: Reviewed. GENERAL: Well-developed in no acute distress. HEENT: Head is normocephalic. Pupils are equal, round. Sclerae anicteric. Mucous membranes of the mouth are moist. Neck supple. No JVD or thyromegaly LUNGS: Respirations even and unlabored. Lungs essentially clear to auscultation bilaterally. HEART: Regular rate and rhythm. S1 and S2 heard. ABDOMEN: Soft. Nondistended. Nontender. EXTREMITIES: Normal range of motion. No clubbing or cyanosis. Peripheral pulses intact. No lower extremity edema NEUROLOGIC: Awake and alert. Oriented x 3. ASSESSMENT: Chest pain, ruled out, patient denies Syncope, unclear if LOC History of coronary artery disease with previous stenting Hypertension Hyperlipidemia PLAN: An acute coronary event has been ruled out Continue home cardiac medications Obtain 2-D echo to assess cardiac structure and function Check orthostatic blood pressures Continue telemetry monitoring Further recommendations pending patient course Nurse practitioner note has been reviewed by physician. Signing provider agrees with the documented findings, assessment, and plan of care. Past Medical History Past Medical History: Coronary Artery Disease (CAD), GERD/Reflux, Hype rlipidemia, Hypertension Additional Past Medical History / Comment(s): RLS History of Any Multi-Drug Resistant Organisms: None Reported Past Surgical History: Heart Catheterization With Stent, Orthopedic Surgery Additional Past Surgical History / Comment(s): R knee arthroscopy, pilonidal cystectomy, circumcism Past Anesthesia/Blood Transfusion Reactions: No Reported Reaction Date of Last Stent Placement:: 04/03/17 Past Psychological History: Depression Past Alcohol Use History: None Reported Past Drug Use History: Heroin, IV Drug Use, Marijuana, Methamphetamine, Prescr iption Drug Abuse - Past Family History Father History Unknown: Yes Additional Family Medical History / Comment(s): Pt does not know his father much. Mother Family Medical History: No Reported History Medications and Allergies Home Medications Medication Instructions Recorded Confirmed Type cloNIDine HCL [Catapres] 0.1 mg PO BID 03/31/17 11/03/20 History Aspirin 325 mg PO DAILY #30 tab 04/04/17 11/03/20 Rx Clopidogrel [Plavix] 75 mg PO DAILY 04/26/17 11/03/20 History Metoprolol Tartrate [Lopressor] 12.5 mg PO BID 04/29/17 11/03/20 History Loratadine [Claritin] 10 mg PO DAILY 11/03/20 11/03/20 History Omeprazole 20 mg PO BID 11/03/20 11/03/20 History Pramipexole [Mirapex] 0.5 mg PO HS 11/03/20 11/03/20 History Rosuvastatin [Crestor] 20 mg PO HS 11/03/20 11/03/20 History Allergies Allergy/AdvReac Type Severity Reaction Status Date / Time No Known Allergies Allergy Verified 11/03/20 08:54 Physical Exam Vitals: Vital Signs Temp Pulse Resp BP Pulse Ox 11/03/20 10:30 98 F 60 16 105/58 100 11/03/20 08:50 60 16 90/53 98 11/03/20 07:13 98.2 F 59 L 16 97/60 99 Intake and Output 11/02/20 11/03/20 11/03/20 22:59 06:59 14:59 Other: Weight 104.326 kg Results 11/03/20 07:10 11/03/20 07:10 Cardiac Enzymes 11/03/20 11/03/20 11/03/20 Range/Units 07:10 07:10 10:33 AST 87 H (17-59) U/L Troponin I <0.012 <0.012 (0.000-0.034) ng/mL Coagulation 11/03/20 Range/Units 07:10 PT 10.9 (9.0-12.0) sec APTT 22.4 (22.0-30.0) sec CBC 11/03/20 Range/Units 07:10 WBC 6.9 (3.8-10.6) k/uL RBC 5.08 (4.30-5.90) m/uL Hgb 15.1 (13.0-17.5) gm/dL Hct 44.3 (39.0-53.0) % Plt Count 223 (150-450) k/uL Comprehensive Metabolic Panel 11/03/20 Range/Units 07:10 Sodium 138 (137-145) mmol/L Potassium 4.4 (3.5-5.1) mmol/L Chloride 105 (98-107) mmol/L Carbon Dioxide 28 (22-30) mmol/L BUN 11 (9-20) mg/dL Creatinine 1.16 (0.66-1.25) mg/dL Glucose 102 H (74-99) mg/dL Calcium 9.0 (8.4-10.2) mg/dL AST 87 H (17-59) U/L ALT 86 H (4-49) U/L Alkaline Phosphatase 78 (38-126) U/L Total Protein 6.5 (6.3-8.2) g/dL Albumin 3.9 (3.5-5.0) g/dL Current Medications Generic Name Dose Route Start Last Admin Trade Name Freq PRN Reason Stop Dose Admin Acetaminophen 650 mg 11/03/20 08:28 Acetaminophen Tab 325 Mg Tab PO Q6HR PRN Mild Pain or Fever > 100.5 Aspirin 81 mg 11/04/20 09:00 Aspirin 81 Mg PO DAILY [facility] Atorvastatin Calcium 40 mg 11/03/20 21:00 Atorvastatin 40 Mg Tab PO HS [facility] Clonidine 0.1 mg 11/03/20 21:00 Clonidine Hcl 0.1 Mg Tab PO BID [facility] Clopidogrel Bisulfate 75 mg 11/04/20 09:00 Clopidogrel 75 Mg Tab PO DAILY [facility] Enoxaparin Sodium 40 mg 11/03/20 09:00 11/03/20 08:44 Enoxaparin 40 Mg/0.4 Ml Syringe SQ 40 mg DAILY [facility] Administration Loratadine 10 mg 11/04/20 09:00 Loratadine 10 Mg Tab PO DAILY [facility] Metoprolol Tartrate 12.5 mg 11/03/20 21:00 Metoprolol Tartrate 12.5 Mg Tab PO BID [facility] Morphine Sulfate 4 mg 11/03/20 08:28 Morphine Sulfate 4 Mg/Ml Syringe IV Q4HR PRN Severe Pain Naloxone HCl 0.2 mg 11/03/20 08:28 Naloxone 0.4 Mg/Ml 1 Ml Vial IV Q2M PRN Opioid Reversal Nitroglycerin 0.4 mg 11/03/20 08:27 Nitroglycerin Sl Tabs 0.4 Mg Tab SUBLINGUAL Q5M PRN Chest Pain Nitroglycerin 1 inch 11/03/20 12:00 Nitroglycerin Oint 1 Inch/Gm Packet TOPICAL Q6HR [facility] Oxycodone/Acetaminophen 1 each 11/03/20 08:28 Oxycodone-Apap 5-325mg 1 Each Tab PO Q4HR PRN Severe Pain Pantoprazole Sodium 40 mg 11/03/20 07:30 Pantoprazole 40 Mg Tablet PO DAILY@0730 [facility] Pramipexole Dihydrochloride 0.5 mg 11/03/20 21:00 Pramipexole 0.25 Mg Tab PO [facility] Intake and Output 11/02/20 11/03/20 11/03/20 22:59 06:59 14:59 Other: Weight 104.326 kg Patient Weight 11/04/20 06:59 Weight 104.326 kg 11/03/20 07:10 11/03/20 07:10
[2020-11-03] MEDS: PANTOPRAZOLE 40 MG TABLET PO SCH (14:36)
[2020-11-03 15:01] LABS: Hemoglobin A1C 5.3 % (4.0-6.0)
[2020-11-03] MEDS: METOPROLOL TARTRATE 12.5 MG TAB PO SCH (20:56)
[2020-11-03] MEDS ORDERED: ATORVASTATIN 40 MG TAB PO SCH (21:00)
[2020-11-03] MEDS ORDERED: PRAMIPEXOLE 0.25 MG TAB PO SCH (21:00)
[2020-11-04] MEDS: cloNIDine HCL 0.1 MG TAB PO SCH ×2 (02:18→08:10)
[2020-11-04 02:41] VITALS: TEMP 97.9
[2020-11-04 07:50] VITALS: BP 119/78; PULSE 57; RESP 14
[2020-11-04] MEDS: ENOXAPARIN 40 MG/0.4 ML SYRINGE SQ SCH (08:08)
[2020-11-04] MEDS: PANTOPRAZOLE 40 MG TABLET PO SCH (08:09)
[2020-11-04] MEDS: METOPROLOL TARTRATE 12.5 MG TAB PO SCH (08:10)
[2020-11-04 08:43] LABS: Basophils # (A) 0.07 X 10*3/uL (0.00-0.10); Basophils % (A) 0.9 %; Eosinophils # (A) 0.28 X 10*3/uL (0.04-0.35); Eosinophils % (A) 3.7 %; HCT 47.7 % (39.6-50.0); HGB 15.7 g/dL (13.0-17.0); Lymphocytes # (A) 2.24 X 10*3/uL (0.90-5.00); Lymphocytes % (A) 29.5 %; MCH 29.5 pg (27.0-32.0); MCHC 32.9 g/dL (32.0-37.0); MCV 89.5 fL (80.0-97.0); Mean Platelet Volume 12.4 fL (9.5-12.2); Monocytes % (A) 7.9 %; Neutrophils # (A) 4.39 X 10*3/uL (1.80-7.70); Neutrophils % (A) 57.9 %; Platelet Count 198 X 10*3/uL (140-440); RBC 5.33 X 10*6/uL (4.40-5.60); RDW 13.2 % (11.5-14.5); WBC 7.59 X 10*3/uL (4.50-10.00)
[2020-11-04] MEDS ORDERED: ASPIRIN 325 MG TAB PO SCH (09:00)
[2020-11-04] MEDS ORDERED: CLOPIDOGREL 75 MG TAB PO SCH (09:00)
[2020-11-04] MEDS ORDERED: LORATADINE 10 MG TAB PO SCH (09:00)
[2020-11-04] MEDS ORDERED: ASPIRIN 81 MG PO SCH (09:00)
--- NOTE | 2020-11-04 10:14 | ECHOF ---
Referral Reason:chest pain MEASUREMENTS -------- HEIGHT: 175.3 cm WEIGHT: 104.3 kg BP: 144/101 RVIDd: 3.0 cm (< 3.3) IVSd: 1.6 cm (0.6 - 1.1) LVIDd: 4.4 cm (3.9 - 5.3) LVPWd: 1.1 cm (0.6 - 1.1) IVSs: 2.1 cm LVIDs: 3.1 cm LVPWs: 1.4 cm LAESV Index (A-L): 30.80 ml/m Ao Diam: 3.0 cm (2.0 - 3.7) AV Cusp: 2.3 cm (1.5 - 2.6) LA Diam: 3.8 cm (2.7 - 3.8) MV EXCURSION: 15.748 mm (> 18.000) MV EF SLOPE: 73 mm/s (70 - 150) EPSS: 0.8 cm MV E Bladimir: 0.68 m/s MV DecT: 143 ms MV A Bladimir: 0.77 m/s MV E/A Ratio: 0.88 AR PHT: 1210 ms RAP: 5.00 mmHg RVSP: 33.38 mmHg FINDINGS -------- Sinus rhythm. This was a technically adequate study. The left ventricular size is normal. There is moderate concentric left ventricular hypertrophy. O verall left ventricular systolic function is normal with, an EF between 55 - 60 %. The right ventricle is mildly enlarged. LA is midly dilated 29-33ml/m2. The right atrium is mildly enlarged. Interatrial and interventricular septum intact. There is mild aortic regurgitation. There is no evidence of aortic stenosis. Mild mitral regurgitation is present. Mild tricuspid regurgitation present. There is borderline pulmonary artery hypertension. The rig t ventricular systolic pressure, as measured by Doppler, is 33.38mmHg. There is no pulmonic regurgitation present. The aortic root size is normal. The inferior vena cava is mildly dilated. There is no pericardial effusion. CONCLUSIONS -------- 1. The left ventricular size is normal. 2. There is moderate concentric left ventricular hypertrophy. 3. Overall left ventricular systolic function is normal with, an EF between 55 - 60 %. 4. The right ventricle is mildly enlarged. 5. LA is midly dilated 29-33ml/m2. 6. The right atrium is mildly enlarged. 7. There is mild aortic regurgitation. 8. Mild mitral regurgitation is present. 9. Mild tricuspid regurgitation present. 10. There is borderline pulmonary artery hypertension. 11. The right ventricular systolic pressure, as measured by Doppler, is 33.38mmHg. 12. The inferior vena cava is mildly dilated. SUPPLY CHAIN SPECIALIST: Maria R Olivas RDCS
[2020-11-04 11:21] LABS: Anion Gap 7.1 mmol/L (4.00-12.00); BUN/Creat Ratio 12.22 Ratio (12.00-20.00); Calcium 8.8 mg/dL (8.7-10.3); Carbon Dioxide 24.9 mmol/L (21.6-31.8); Chol/HDL Ratio 2.76; LDL Cholesterol,Calculated 52.8 mg/dL (0.0-131.0); Magnesium 1.9 mg/dL (1.5-2.4); Non-African American GFR(CKD) 99.2 (60.0-200.0); Potassium 4.4 mmol/L (3.5-5.5); VLDL Calculation 21.2 mg/dL (5.00-40.00)
--- NOTE | 2020-11-04 12:26 | P.PN ---
Subjective This is a 50-year-old male with a past medical history significant for coronary artery disease with previous stenting, hypertension, and hyperlipidemia. Patient follows in the office with Dr. Badillo. We have been asked to see the patient in consultation for chest pain and syncope. Patient examined at the bedside in the emergency room. Patient is currently incarcerated and officer is at the bedside. Patient states this morning he was in his normal state of health when he was walking after breakfast and had an apparent syncopal episode. It is unclear if the patient lost consciousness. He reports feeling mildly dizzy before this happened. He denies chest pain or pressure. He denies shortness of breath. He denies losing control of bowel or bladder. Patient denies biting his tongue. At the time of examination, the patient denies any complaints. EKG reveals sinus mechanism with T-wave inversions in inferior leads. Chest xray chronic changes without evidence for acute pulmonary disease. Current home cardiac medications include Crestor 20 gm daily, Catapres 0.1 mg twice a day, metoprolol tartrate 12.5 mg twice a day, clopidogrel 75 mg daily, aspirin 325 mg daily Most recent echocardiogram obtained in 2017 revealed ejection fraction 55-60%, mild mitral regurgitation and trace tricuspid regurgitation Cardiac catheterization history: April [address] Badillo revealing patent stent in the mid right coronary artery, patent stent in the first diagonal branch of the left anterior descending artery, mildly impaired left ventricular function, and a component of coronary vasospasm was seen in the distal right coronary artery 11/04/2020 Patient seen and examined at bedside, no acute distress, he denies any symptoms of presyncope, syncope, dizziness, lightheadedness. Telemetry reviewed patient's heart rate in the 40s overnight. Blood pressure 119/70, heart rate 57, afebrile, maintaining oxygen saturation is 97% on room air. Orthostatic vital signs, lying 121/74, sitting 144/101, standing 165/136. Patient currently maintained on Crestor 20 gm daily, Catapres 0.1 mg twice a day, metoprolol tartrate 12.5 mg twice a day, clopidogrel 75 mg daily, aspirin 325 mg daily PHYSICAL EXAM: VITAL SIGNS: Reviewed. GENERAL: Well-developed in no acute distress. HEENT: Head is normocephalic. No JVD or thyromegaly LUNGS: Respirations even and unlabored. Lungs essentially clear to auscultation bilaterally. HEART: Regular rate and rhythm. S1 and S2 heard. ABDOMEN: Soft. Nondistended. Nontender. EXTREMITIES: Normal range of motion. No clubbing or cyanosis. Peripheral pulses intact. No lower extremity edema NEUROLOGIC: Awake and alert. Oriented x 3. ASSESSMENT: Chest pain, ruled out, patient denies Syncope, unclear if LOC History of coronary artery disease with previous stenting Hypertension Hyperlipidemia PLAN: Stop metoprolol Reduce aspirin to 81mg daily Will continue other cardiac medications at this time Orthostatic vital signs negative Echocardiogram reviewed, no acute findings From cardiology perspective, we recommend an event monitor, however the hospital does not have any in stock until Wednesday. Called the office and there are complications with the patient's insurance due to patient being incarcerated and getting an event monitor placed. This was discussed with the patient. Recommend patient follow up with Dr. Mccauley in the office within 1-2 weeks for further workup. Patient is stable for discharge from a cardiology perspective. Nurse practitioner note has been reviewed by physician. Signing provider agrees with the documented findings, assessment, and plan of care. Objective - Vital Signs Vital signs: Vital Signs Temp 97.9 F 11/04/20 07:00 Pulse 57 L 11/04/20 07:00 Resp 14 11/04/20 07:00 BP 119/78 11/04/20 07:00 Pulse Ox 97 11/04/20 08:27 Intake & Output 11/03/20 11/04/20 11/04/20 18:59 06:59 18:59 Weight 104.326 kg Other: # Voids 0 3 # Bowel Movements 0 1 - Labs CBC & Chem 7: 11/04/20 06:03 11/04/20 06:08 Labs: Abnormal Lab Results - Last 24 Hours (Table) 11/04/20 Range/Units 06:03 MPV 12.4 H (9.5-12.2) fL
--- NOTE | 2020-11-04 14:37 | P.DS ---
Providers Date of admission: 11/03/20 08:27 Expected date of discharge: 11/04/20 Attending physician: Isidoro Mullen MD Consults: 11/03/20 08:27 Consult Physician Urgent Consulting Provider: Barb Raphael Consult Reason/Comments: cp, syncope Do you want consulting provider notified?: Yes Primary care physician: Stated None Hospital Course: 50 year old man with history of CAD s/p PCI x 2, narcotic dependence, HLD, HTN presented for chest pressure and syncopal episode. He said that he has been experiencing palpitations intermittently throughout the week leading up to arrival. This morning, he had an episode in which he lost consciousness briefly shortly after breakfast. He denied hitting his head, biting his tongue, losing bowel or bladder during the episode. He denies palpitations just prior to syncope. He denies confusion after coming to after the episode. He reports some feeling of chest pressure, but not pain. He denies fevers, chills, n/v/c/d, abd pain, cough, dyspnea, dysuria, dyschezia, numbness/weakness. In the ER, patient was afebrile, 105/58, HR 60, 100% on room air. CBC and chemistries unremarkable. LFTs show mild non-specific elevation of AST/ALT. Troponins were negative x 2. EKG shows sinus bradycardia without ischemic changes. CXR is clear with no vascular congestion or lung pathology. Syncope Chest pressure History of CAD Patient admitted to telemetry, observation. Cardiology consult on the patient. Troponins were trended and were negative. No ischemic changes were identified on EKG. Patient was treated with aspirin, Plavix, statin. His home metoprolol was continued. Echocardiogram was obtained which demonstrated ejection fraction of 55-60%, mildly enlarged right ventricle, no diastolic dysfunction, no wall motion abnormality. Patient was cleared to be discharged with cardiology follow-up, with recommendations to have outpatient rhythm monitoring. Hypertension Hyperlipidemia Narcotic dependence Patient's metoprolol was discontinued, otherwise no changes to his home medications. Patient Condition at Discharge: Good Plan - Discharge Summary Discharge Rx Participant: No New Discharge Prescriptions: New Aspirin 81 mg PO DAILY chew Clopidogrel [Plavix] 75 mg PO DAILY tab Continue cloNIDine HCL [Catapres] 0.1 mg PO BID Loratadine [Claritin] 10 mg PO DAILY Pramipexole [Mirapex] 0.5 mg PO HS Omeprazole 20 mg PO BID Rosuvastatin [Crestor] 20 mg PO HS Discontinued Aspirin 325 mg PO DAILY #30 tab Clopidogrel [Plavix] 75 mg PO DAILY Metoprolol Tartrate [Lopressor] 12.5 mg PO BID Discharge Medication List cloNIDine HCL [Catapres] 0.1 mg PO BID 03/31/17 [History] Loratadine [Claritin] 10 mg PO DAILY 11/03/20 [History] Omeprazole 20 mg PO BID 11/03/20 [History] Pramipexole [Mirapex] 0.5 mg PO HS 11/03/20 [History] Rosuvastatin [Crestor] 20 mg PO HS 11/03/20 [History] Aspirin 81 mg PO DAILY chew 11/04/20 [Rx] Clopidogrel [Plavix] 75 mg PO DAILY tab 11/04/20 [Rx] Follow up Appointment(s)/Referral(s): Johnathan Mccauley MD [STAFF PHYSICIAN] - 1 Week (Recommend follow up with Dr. Mccauley for event monitor placement Medical Staff at [facility] please make appointment for this pt next week November 11 through November 15 thank you ) None,Stated [Primary Care Provider] - 1-2 days Patient Instructions/Handouts: Chest Pain (GEN) Discharge Disposition: OTHER INSTITUTION NOT DEFINED
== END 2020-11-04 13:00 | disposition other institution (70) ==
LOC: EC 07:06 → 6NMEDSUR 08:27
PROVIDERS: ADMIT Internal Medicine; ATTEND Internal Medicine
DX: R07.89 Other chest pain (principal); R55 Syncope and collapse; I25.10 Atherosclerotic heart disease of native coronary artery without angina pectoris; R00.2 Palpitations; R00.1 Bradycardia, unspecified; I10 Essential (primary) hypertension; E78.5 Hyperlipidemia, unspecified; Z20.822 Contact with and (suspected) exposure to COVID-19; K21.9 Gastro-esophageal reflux disease without esophagitis; G25.81 Restless legs syndrome; Z79.82 Long term (current) use of aspirin; Z79.02 Long term (current) use of antithrombotics/antiplatelets; Z79.899 Other long term (current) drug therapy; Z86.59 Personal history of other mental and behavioral disorders; Z95.5 Presence of coronary angioplasty implant and graft
CPT/HCPCS: 96372 ×2; 93005 ×2; 99285; 36415; 93306; 85379; 80061; 80053; 80048; 84443; 83735 ×2; 84484; 85025 ×2; 85610; 85730; 83036; 87635; 71045; G0378 ×2; J1650 ×2